=== PATIENT | male | born 1965 | race Caucasian/White ===

== ENCOUNTER 2017-09-11 21:29 | Emergency (ER) | payer OTHER ==
[~2017-09-11] VITALS: Ht 175.3 cm; Wt 87.1 kg
[2017-09-11 21:31] VITALS: TEMP 36.7; Ht 175.3 cm; Wt 87.1 kg
[2017-09-11] MEDS ORDERED: METOCLOPRAMIDE HCL INJ 5 MG/ML 2 ML VIAL IV STA (21:45)
[2017-09-11] MEDS ORDERED: DiphenhydrAMINE HCL 50 MG/ML VIAL IV STA (21:45)
[2017-09-11] MEDS ORDERED: KETOROLAC TROMETHAMINE 30 MG/ML VIAL IV STA (21:45)
[2017-09-11] MEDS ORDERED: [UNRECOGNIZED DRUG - CODE] IM (22:08)
[2017-09-11] MEDS ORDERED: AMLO-110 PO (22:08)
[2017-09-11] MEDS ORDERED: TRDI30X IM (22:08)
[2017-09-11] MEDS ORDERED: ASPCH81X PO (22:08)
[2017-09-11] MEDS ORDERED: PRLSR20 PO (22:08)
[2017-09-11] MEDS ORDERED: TAMS0.4C38 PO (22:08)
[2017-09-11] MEDS ORDERED: HYDR50CA2 PO (22:08)
[2017-09-11 22:14] LABS: BASO % 0.2 %; BASO ABS # 0.02 K/uL (0-0.2); EOS % 0.2 %; EOS ABS # 0.03 K/uL (0-0.5); HEMATOCRIT 44.6 % (42-52); HEMOGLOBIN 16.3 g/dL (14.0-18.0); IG# 0.03 K/uL (0.00-0.02); LYMPH % 18.7 %; LYMPH ABS # 2.46 K/uL (1.2-3.4); MEAN CELL VOLUME 83.8 fL (80-100); MEAN CORPUSCULAR HEMOGLOBIN 30.6 pg (25-34); MEAN CORPUSCULAR HGB CONC 36.5 g/dl (32-36); MEAN PLATELET VOLUME 10.5 fL (7.4-10.4); MONO % 10.1 %; MONO ABS # 1.32 K/uL (0.11-0.59); NEUT % 70.6 %; NEUT ABS # 9.27 K/uL (1.4-6.5); PLATELET COUNT 228 K/uL (130-400); RED CELL DISTRIBUTION WIDTH CV 12.7 % (11.5-14.5); RED CELL DISTRIBUTION WIDTH SD 38.5 fL (36.4-46.3); WHITE BLOOD COUNT 13.13 K/uL (4.8-10.8)
[2017-09-11 22:34] LABS: ALBUMIN 4.4 gm/dl (3.4-5.0); CALCIUM 9.1 mg/dl (8.5-10.1); CREATININE 1.04 mg/dl (0.60-1.40); POTASSIUM 3.6 mmol/L (3.5-5.1)
[2017-09-11 22:37] LABS: TOTAL PROTEIN 7.9 gm/dl (6.4-8.2)
[2017-09-11] MEDS ORDERED: OPTIRAY 320 IV PRN (23:15)
[2017-09-11] MEDS ORDERED: MoRPHine SULFATE 4 MG/ML 1 ML CARP\\VIAL IV STA (23:21)
[2017-09-11 23:57] VITALS: O2SAT 95
--- NOTE | 2017-09-12 00:33 | EMERGENCY ROOM VISIT NOTE ---
History First contact with patient: 21:34 Chief Complaint: ABDOMINAL PAIN Stated Complaint: ABD PAIN Nursing Triage Summary: Abdominal pain since 8pm last night with dry heaves. History of Present Illness The patient is a 51 year old male who presents to the Emergency Room with complaints of left lower quadrant abdominal pain for the past day that is steadily getting worse it radiates to his groin. Pain 8 out of 10. Nothing makes it better or worse. He has had nausea and vomiting. He saw the doctor at the present who gave him Toradol and Phenergan with no improvement of symptoms. No colonoscopy in the past. He is unsure if he has had a kidney stone. No injury to the area. Patient denies chest pain, dyspnea, fever, chills, cough, congestion, urinary symptoms, diarrhea. Review of Systems An 10 system review of systems was completed with positives and pertinent negatives listed in the HPI. 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) Current/Historical Medications Scheduled Amlodipine (Norvasc), 5 MG PO DAILY Aspirin (Aspirin Chewable), 81 MG PO DAILY Hydroxyzine Pamoate (Vistaril), 100 MG PO HS Omeprazole (Prilosec), 20 MG PO DAILY Tamsulosin Hcl (Flomax), 0.4 MG PO DAILY Scheduled PRN Ketorolac Tromethamine (Ketorolac Tromethamine), 60 MG IM TID PRN for Pain Promethazine Hcl (Phenergan), 50 MG IM TID PRN for Nausea Physical Exam Vital Signs Date Time Temp Pulse Resp B/P (MAP) Pulse Ox O2 Delivery O2 Flow Rate FiO2 09/12/17 00:01 67 09/11/17 23:57 95 Room Air 09/11/17 23:25 66 18 178/95 95 Room Air 09/11/17 21:31 36.7 82 18 155/97 96 Room Air Physical Exam VITALS: Vitals are noted on the nurse's note and reviewed by myself. Vital signs stable. GENERAL: White male in [facility], in no acute distress, nondiaphoretic, well- developed well-nourished. SKIN: The skin was without rashes, erythema, edema, or bruising. There is no tenting of the skin. Capillary reflex less than 2 seconds. HEAD: Normocephalic atraumatic. EARS: External auditory canals clear, tympanic membranes pearly bender without erythema or effusion bilaterally. EYES: Pupils equal round and reactive to light and accommodation. Conjunctivae without injection, sclerae without icterus. Extraocular movements intact. NOSE: Patent, turbinates without inflammation or discharge. MOUTH: Mucous membranes moist. . Pharynx without erythema or exudate. Uvula midline. Airway patent. Tongue does not deviate. NECK: Supple without nuchal rigidity. No lymphadenopathy. No thyromegaly. Cervical spine is nontender. No JVD. HEART: Regular rate and rhythm without murmurs gallops or rubs. LUNGS: Clear to auscultation bilaterally without wheezes, rales or rhonchi. No dullness to percussion. No retractions or accessory muscle use. ABDOMEN: Positive bowel sounds x 4. Normal tympanic percussion. Soft, tender to palpation left lower quadrant, no CVA tenderness, without masses or organomegaly. Eldridge sign negative. No guarding or rebound tenderness. MUSCULOSKELETAL: No muscle atrophy, erythema, or edema noted. NEURO: Patient was alert and oriented to person place and time. Normal sensation to light and sharp touch. No focal neurological deficits. Medical Decision & Procedures Laboratory Results 09/11/17 22:02 Red Blood Count 5.32, Mean Corpuscular Volume 83.8, Mean Corpuscular Hemoglobin 30.6, Mean Corpuscular Hemoglobin Concent 36.5, Mean Platelet Volume 10.5, Neutrophils (%) (Auto) 70.6, Lymphocytes (%) (Auto) 18.7, Monocytes (%) (Auto) 10.1, Eosinophils (%) (Auto) 0.2, Basophils (%) (Auto) 0.2, Neutrophils # (Auto ) 9.27, Lymphocytes # (Auto) 2.46, Monocytes # (Auto) 1.32, Eosinophils # (Auto ) 0.03, Basophils # (Auto) 0.02 09/11/17 22:02 Test 09/11/17 21:52 09/11/17 22:02 09/11/17 23:39 Urine Color YELLOW Urine Appearance CLEAR (CLEAR) Urine pH 6.5 (4.5-7.5) Urine Specific [place] 1.007 (1.000-1.030) Urine Protein NEG (NEG) Urine Glucose (UA) NEG (NEG) Urine Ketones NEG (NEG) Urine Occult Blood NEG (NEG) Urine Nitrite NEG (NEG) Urine Bilirubin NEG (NEG) Urine Urobilinogen NEG (NEG) Urine Leukocyte Esterase NEG (NEG) White Blood Count 13.13 K/uL (4.8-10.8) Red Blood Count 5.32 M/uL (4.7-6.1) Hemoglobin 16.3 g/dL (14.0-18.0) Hematocrit 44.6 % (42-52) Mean Corpuscular Volume 83.8 fL (80-100) Mean Corpuscular Hemoglobin 30.6 pg (25-34) Mean Corpuscular Hemoglobin Concent 36.5 g/dl (32-36) Platelet Count 228 K/uL (130-400) Mean Platelet Volume 10.5 fL (7.4-10.4) Neutrophils (%) (Auto) 70.6 % Lymphocytes (%) (Auto) 18.7 % Monocytes (%) (Auto) 10.1 % Eosinophils (%) (Auto) 0.2 % Basophils (%) (Auto) 0.2 % Neutrophils # (Auto) 9.27 K/uL (1.4-6.5) Lymphocytes # (Auto) 2.46 K/uL (1.2-3.4) Monocytes # (Auto) 1.32 K/uL (0.11-0.59) Eosinophils # (Auto) 0.03 K/uL (0-0.5) Basophils # (Auto) 0.02 K/uL (0-0.2) RDW Standard Deviation 38.5 fL (36.4-46.3) RDW Coefficient of Variation 12.7 % (11.5-14.5) Immature Granulocyte % (Auto) 0.2 % Immature Granulocyte # (Auto) 0.03 K/uL (0.00-0.02) Anion Gap 9.0 mmol/L (3-11) Est Creatinine Clear Calc Drug Dose 92.9 ml/min Estimated GFR () 96.6 Estimated GFR (Non- 83.3 BUN/Creatinine Ratio 8.4 (10-20) Calcium Level 9.1 mg/dl (8.5-10.1) Total Bilirubin 1.1 mg/dl (0.2-1) Direct Bilirubin 0.2 mg/dl (0-0.2) Aspartate Amino Transf (AST/SGOT) 52 U/L (15-37) Alanine Aminotransferase (ALT/SGPT) 47 U/L (12-78) Alkaline Phosphatase 67 U/L (45-117) Total Protein 7.9 gm/dl (6.4-8.2) Albumin 4.4 gm/dl (3.4-5.0) Bedside Lactic Acid Venous 0.82 mmol/L (0.90-1.70) Medications Administered Medications (Trade) Dose Ordered Sig/Chantal Route Start Time Stop Time Status Last Admin Dose Admin Ketorolac Tromethamine (Toradol Inj) 30 mg NOW STAT IV 09/11/17 21:45 09/11/17 21:47 DC 09/11/17 22:06 30 MG Metoclopramide HCl (Reglan Inj) 10 mg NOW STAT IV 09/11/17 21:45 09/11/17 21:47 DC 09/11/17 22:05 10 MG Diphenhydramine HCl (Benadryl Inj) 12.5 mg NOW STAT IV 09/11/17 21:45 09/11/17 21:47 DC 09/11/17 22:05 12.5 MG Morphine Sulfate (MoRPHine SULFATE INJ) 4 mg NOW STAT IV 09/11/17 23:21 09/11/17 23:22 DC 09/11/17 23:29 4 MG ED Course Prior records/ancillary studies reviewed. Triage Nursing notes reviewed. Additional history obtained from correction officers. The patient's history was concerning for abdominal pain. Differential diagnosis: Etiologies such as appendicitis, diverticulitis, PUD, biliary pathology, UTI, pancreatitis, obstruction, mesenteric ischemia, aortic pathology, infections, inflammatory bowel disease, renal colic, as well as others were entertained. Physical examination findings: As above. ER treatment provided: Toradol, Benadryl, Reglan On reassessment the patient felt better. Diagnostics interpreted by me: The labs revealed leukocytosis. No worrisome electrolyte abnormality. Negative urine Imaging studies: CT ABDOMEN & PELVIS With Contrast: Left sided Bochdalek hernia with herniation of the mesenteric fat in the left lower thorax. There is some fatty stranding in this area which may represent incarceration of fat. Left mild pleural effusion. Mild hiatal hernia. No hydronephrosis or nephrolithiasis. No bowel obstruction or bowel thickening. Radiologist: Dru Saavedra MD Study ready at 23:12 and initial results transmitted at 23:16 Critical Value Communications Consultation: A consultation was placed with the GS, Dr Quiroz. The case was discussed and diagnostics were reviewed. He states there is nothing to do with this and recommends discharge with outpatient follow-up. Exam and history seem consistent with Bochdalek hernia with herniation of the mesenteric fat in the left lower thorax and possible incarceration of fat. Surgery states there is nothing to do with this and recommend outpatient follow- up. Patient had a negative lactic acid. He is well-appearing. He did not have acute abdomen on exam. Patient was neurovascularly and neurologically intact. He was afebrile and nontoxic. No signs of UTI. He was advised to follow-up present doctor tomorrow here in the ER sooner for severe pain, fevers , vomiting, worsening signs or symptoms or as needed. By the evaluation outlined above emergent etiologies such as appendicitis, diverticulitis, PUD, biliary pathology, UTI, pancreatitis, obstruction, mesenteric ischemia, aortic pathology, infections, inflammatory bowel disease, renal colic, as well as others were deemed relatively unlikely. The pt informed about the findings as listed above. All questions were answered and pleased with the treatment. Return instructions were outlined and the patient was discharged in stable condition. Referral: The patient was referred back to their primary care physician for follow-up in 2 to 3 days for a recheck of the current condition. Case reviewed with my attending Medical Decision As above Medication Reconcilliation Current Medication List: was personally reviewed by me Blood Pressure Screening Patient's blood pressure: Elevated blood pressure Blood pressure disposition: Elevated BP felt to be situational Impression Primary Impression: Abdominal pain Additional Impression: Incarcerated fat Departure Information Referrals Marcelino TONY (PCP) Patient Instructions My [facility] Problem Qualifiers Primary Impression: Abdominal pain Abdominal location: left upper quadrant Qualified Codes: R10.12 - Left upper quadrant pain
[2017-09-12 00:38] VITALS: BP 168/87; PULSE 66; O2SAT 96
--- NOTE | 2017-09-12 07:25 | DIAGNOSTIC IMAGING REPORT ---
CT OF THE ABDOMEN AND PELVIS WITH CONTRAST CLINICAL HISTORY: Left lower quadrant abdominal pain. COMPARISON STUDY: None. TECHNIQUE: Following IV administration of 116 mL of Optiray-320, axial images of the abdomen and pelvis were obtained from the lung bases to the proximal femurs. Images were reviewed in the axial, sagittal, and coronal planes. IV contrast was administered without complication. A dose lowering technique was utilized adhering to the principles of ALARA. CT DOSE: 379.48 mGy.cm FINDINGS: Visualized portions of the lower chest demonstrate a trace left pleural effusion. In addition, there is a small defect within the left hemidiaphragm. A short segment of the splenic flexure of the colon protrudes through this defect. There is mild wall thickening of this portion of the colon with mild adjacent infiltration of the mesenteric fat. In addition, a moderate amount of fat protrudes through the defect. The liver, adrenal glands and pancreas are unremarkable. The size of the spleen is normal. There is a small subcapsular hypodense perisplenic fluid collection. A 1.2 cm lesion arising from the midpole of the left kidney measures just above water attenuation. This could be artifactual. There is no hydronephrosis. There is moderate atherosclerotic plaque of the abdominal aorta. There is no evidence for a small bowel obstruction. No lymphadenopathy is present. There are no suspicious skeletal lesions. IMPRESSION: 1. Small defect within the left hemidiaphragm which may be congenital or posttraumatic and is age indeterminate. This hernia has a narrow neck and a short segment of the splenic flexure protrudes through the hernia into the left lower hemithorax. Mild wall thickening of this portion of the colon with minimal adjacent infiltration and a trace left pleural effusion. This may reflect a closed loop type obstruction and colonic ischemia cannot be excluded on this exam. Surgical consultation is recommended. Findings discussed with Dr. Bee at time of dictation. 2. 1.2 cm hypodense left renal lesion. This likely reflects a cyst however measures just above water attenuation. A follow-up nonemergent renal ultrasound is recommended. 3. Tiny hypodense splenic subcapsular fluid collection which may reflect an old subcapsular hematoma. In addition, multiple old left-sided rib fractures. 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 Electronically signed by: Tim Fitzgerald M.D. 09/12/2017 7:24 AM Dictated Date/Time: 09/12/2017 7:04 AM
== END 2017-09-12 00:38 | disposition home or self-care (01) ==
LOC: C.EDB 21:31
DX: R10.12 Left upper quadrant pain (principal); I10 Essential (primary) hypertension; B19.20 Unspecified viral hepatitis C without hepatic coma; K21.9 Gastro-esophageal reflux disease without esophagitis; M54.9 Dorsalgia, unspecified; F17.210 Nicotine dependence, cigarettes, uncomplicated; Z79.82 Long term (current) use of aspirin; Z79.899 Other long term (current) drug therapy

== ENCOUNTER 2017-09-12 09:34 | Inpatient (IN) | payer OTHER ==
[~2017-09-12] VITALS: Ht 175.3 cm; Wt 86.2 kg
[~2017-09-12 09:34] MED LIST: AMLO-110 PO; ASPCH81X PO; HYDR50CA2 PO; PRLSR20 PO; TAMS0.4C38 PO; TRDI30X IM; [UNRECOGNIZED DRUG - CODE] IM
[2017-09-12] MEDS ORDERED: SODIUM CHLORIDE 0.9% 1000ML 500 ML IV STA (09:58)
[2017-09-12] MEDS ORDERED: ONDANSETRON INJ 2 MG/ML 2 ML VIAL IV STA (09:58)
[2017-09-12] MEDS ORDERED: MoRPHine SULFATE 4 MG/ML 1 ML CARP\\VIAL IV PRN (10:00)
[2017-09-12 10:26] LABS: BASO % 0.2 %; BASO ABS # 0.02 K/uL (0-0.2); EOS % 0.2 %; EOS ABS # 0.02 K/uL (0-0.5); HEMATOCRIT 44.8 % (42-52); HEMOGLOBIN 16.1 g/dL (14.0-18.0); IG# 0.02 K/uL (0.00-0.02); LYMPH % 12.7 %; LYMPH ABS # 1.62 K/uL (1.2-3.4); MEAN CELL VOLUME 85.2 fL (80-100); MEAN CORPUSCULAR HEMOGLOBIN 30.6 pg (25-34); MEAN CORPUSCULAR HGB CONC 35.9 g/dl (32-36); MEAN PLATELET VOLUME 10.8 fL (7.4-10.4); MONO % 8.3 %; MONO ABS # 1.06 K/uL (0.11-0.59); NEUT % 78.4 %; NEUT ABS # 10.01 K/uL (1.4-6.5); PLATELET COUNT 215 K/uL (130-400); RED CELL DISTRIBUTION WIDTH CV 12.8 % (11.5-14.5); RED CELL DISTRIBUTION WIDTH SD 39.9 fL (36.4-46.3); WHITE BLOOD COUNT 12.75 K/uL (4.8-10.8)
[2017-09-12 10:41] LABS: ALBUMIN 4.3 gm/dl (3.4-5.0); CALCIUM 9.1 mg/dl (8.5-10.1); CREATININE 1.04 mg/dl (0.60-1.40); POTASSIUM 3.8 mmol/L (3.5-5.1)
[2017-09-12 10:43] LABS: TOTAL PROTEIN 7.6 gm/dl (6.4-8.2)
[2017-09-12 11:15] VITALS: O2SAT 95; Ht 175.3 cm; Wt 86.2 kg
[2017-09-12] MEDS ORDERED: ONDANSETRON INJ 2 MG/ML 2 ML VIAL IV PRN (11:30)
[2017-09-12] MEDS ORDERED: PIPERACILL/TAZOBAC CONSULT ACTIVE PRN (11:30)
[2017-09-12] MEDS ORDERED: ACETAMINOPHEN 325 MG TAB PO PRN (11:30)
--- NOTE | 2017-09-12 11:35 | Medical Consult ---
Consultation Note Date of Service Sep 12, 2017. Consultation Note H & P Dictated #[id number]
[2017-09-12 11:56] LABS: PTT PATIENT 25.4 SECONDS (21.0-31.0)
[2017-09-12] MEDS: MoRPHine SULFATE 2 MG/ML CARP IV PRN ×3 (13:15→19:19)
[2017-09-12] MEDS: SODIUM CHLORIDE 0.9% 1000ML 1,000 ML IV SCH (13:41)
[2017-09-12] MEDS ORDERED: TAMSULOSIN HCL 0.4 MG CAP PO ONE (14:15)
--- NOTE | 2017-09-12 14:16 | HISTORY & PHYSICAL EXAMINATION ---
DATE OF ADMISSION: 09/12/2017 REASON FOR ADMISSION: Recurrent left diaphragmatic hernia. HISTORY OF PRESENT ILLNESS: This is a 51-year-old inmate who has lower abdominal pain and underwent a workup and was found to have a recurrent left diaphragmatic hernia. The patient suffered fractured ribs several years ago and apparently developed a diaphragmatic rupture. This was repaired several years ago at via thoracotomy. The patient presents back now and has had chronic pain in his abdomen, but which is not associated with bowel movements. He underwent a CT scan which showed a recurrent hernia with colon in his left chest. I had a long talk with the patient and informed him I was concerned about this, although he did not appear to be obstructed. We admitted him and we are going to take him for a Robot-assisted laparoscopic repair of this diaphragmatic hernia tomorrow on 09/13/2017. We had a long discussion about risks, benefits and about expected outcomes. I have explained to him that his abdominal pain may not be affected by this. The patient has had bilateral inguinal hernia repairs and he feels that there has been a recurrence, although he certainly has no evidence of any obstruction or incarceration. The abdomen is soft. He has good bowel sounds. He is not tender. We will get the diaphragmatic hernia repaired tomorrow. MAXIMO
[2017-09-12] MEDS ORDERED: PIPERACILL/TAZOBAC IV 3.375 GM in DEXTROSE 5% 100ML 100 ML IV SCH (14:30)
[2017-09-12] MEDS: KETOROLAC TROMETHAMINE 15 MG/ML VIAL IV PRN ×2 (14:41→21:58)
--- NOTE | 2017-09-12 15:23 | EMERGENCY ROOM VISIT NOTE ---
History Report prepared by Josue: Cortes Gutierrez Under the Supervision of: Dr. Gurvinder Vaughn M.D. First contact with patient: 09:51 Chief Complaint: ABDOMINAL PAIN Stated Complaint: ER CALLED AND TOLD THEM TO COME BACK Nursing Triage Summary: Pt states diffuse abd pain that started Sat at 2030, nausea. No BM since Sat. Pt was here during the night, was called and told to return. Pt states, "I don't know why they wanted me to come back. I hope to get rid of my pain." CT report states: possible closed loop type obstruction and colonic ischemia. History of Present Illness The patient is a 51 year old male who presents to the Emergency Room with complaints of constant abdominal pain for three days. He states it initially began with a cramp at 2030 three days ago. He reports the pain has radiated throughout the whole abdomen. He currently rates his pain a 10/10 in severity. He has been dry heaving. He does not believe anything makes it better. He denies any fevers or cough. He has a history of diaphragmatic hernia with a history of surgical repair. He has a history of inguinal hernias. He reports a mild loss of appetite. He states that last time he went to the bathroom (BM) was two days ago. He denies any shortness of breath, though he feels like the pain is making it more difficult to breath. He was seen in the ED last night for similar symptoms, though he was sent home. The radiologist over read the scans this morning and determined the patient may have an incarcerated hernia. Source of History: patient Onset: three days ago Position: abdomen Symptom Intensity: 10/10 Timing: constant Associated Symptoms: No fevers, No cough, No SOB, No vomiting Note: He reports dry heaving. He reports mild loss of appetite. Review of Systems See HPI for pertinent positives & negatives. A total of 10 systems reviewed and were otherwise negative. Past Medical & Surgical Medical Problems: (1) Diaphragmatic hernia (2) Inguinal hernia Family History No pertinent family history Social History Smoking Status: Current Every Day Smoker Marital Status: single Housing Status: other Occupation Status: other Current/Historical Medications Scheduled Amlodipine (Norvasc), 5 MG PO DAILY Aspirin (Aspirin Chewable), 81 MG PO DAILY Hydroxyzine Pamoate (Vistaril), 100 MG PO HS Omeprazole (Prilosec), 20 MG PO DAILY Tamsulosin Hcl (Flomax), 0.4 MG PO DAILY Scheduled PRN Ketorolac Tromethamine (Ketorolac Tromethamine), 60 MG IM TID PRN for Pain Promethazine Hcl (Phenergan), 50 MG IM TID PRN for Nausea Allergies Coded Allergies: No Known Allergies (Unverified , 09/12/17) Physical Exam Vital Signs Date Time Temp Pulse Resp B/P (MAP) Pulse Ox O2 Delivery O2 Flow Rate FiO2 09/12/17 11:15 95 Room Air 09/12/17 10:43 70 09/12/17 10:41 67 14 165/90 95 Room Air 09/12/17 09:42 36.8 75 18 175/95 95 Room Air Physical Exam GENERAL: Patient is in no acute distress. HEENT: No acute trauma, normocephalic atraumatic, mucous membranes moist, no nasal congestion, no scleral icterus. NECK: No stridor, no adenopathy, no meningismus, trachea is midline. LUNGS: Clear to auscultation bilaterally, no wheeze, no rhonchi, breath sounds equal. HEART: Without murmurs gallops or rubs, regular rate and rhythm. ABDOMEN: Soft, mild diffuse tenderness, bowel sounds positive, no hernias, no peritonitis. EXTREMITIES: No cyanosis or edema, full range of motion of all the joints without pain or difficulty, no signs for acute trauma. NEUROLOGIC: Oriented x 3, no acute motor or sensory deficits, no focal weakness. SKIN: No rash, no jaundice, no diaphoresis. Medical Decision & Procedures Laboratory Results 09/12/17 10:17 Red Blood Count 5.26, Mean Corpuscular Volume 85.2, Mean Corpuscular Hemoglobin 30.6, Mean Corpuscular Hemoglobin Concent 35.9, Mean Platelet Volume 10.8, Neutrophils (%) (Auto) 78.4, Lymphocytes (%) (Auto) 12.7, Monocytes (%) (Auto) 8.3, Eosinophils (%) (Auto) 0.2, Basophils (%) (Auto) 0.2, Neutrophils # (Auto) 10.01, Lymphocytes # (Auto) 1.62, Monocytes # (Auto) 1.06, Eosinophils # (Auto) 0.02, Basophils # (Auto) 0.02 09/12/17 10:17 Test 09/12/17 10:17 09/12/17 11:02 White Blood Count 12.75 K/uL (4.8-10.8) Red Blood Count 5.26 M/uL (4.7-6.1) Hemoglobin 16.1 g/dL (14.0-18.0) Hematocrit 44.8 % (42-52) Mean Corpuscular Volume 85.2 fL (80-100) Mean Corpuscular Hemoglobin 30.6 pg (25-34) Mean Corpuscular Hemoglobin Concent 35.9 g/dl (32-36) Platelet Count 215 K/uL (130-400) Mean Platelet Volume 10.8 fL (7.4-10.4) Neutrophils (%) (Auto) 78.4 % Lymphocytes (%) (Auto) 12.7 % Monocytes (%) (Auto) 8.3 % Eosinophils (%) (Auto) 0.2 % Basophils (%) (Auto) 0.2 % Neutrophils # (Auto) 10.01 K/uL (1.4-6.5) Lymphocytes # (Auto) 1.62 K/uL (1.2-3.4) Monocytes # (Auto) 1.06 K/uL (0.11-0.59) Eosinophils # (Auto) 0.02 K/uL (0-0.5) Basophils # (Auto) 0.02 K/uL (0-0.2) RDW Standard Deviation 39.9 fL (36.4-46.3) RDW Coefficient of Variation 12.8 % (11.5-14.5) Immature Granulocyte % (Auto) 0.2 % Immature Granulocyte # (Auto) 0.02 K/uL (0.00-0.02) Anion Gap 10.0 mmol/L (3-11) Est Creatinine Clear Calc Drug Dose 92.5 ml/min Estimated GFR () 96.6 Estimated GFR (Non- 83.3 BUN/Creatinine Ratio 10.4 (10-20) Calcium Level 9.1 mg/dl (8.5-10.1) Total Bilirubin 1.2 mg/dl (0.2-1) Aspartate Amino Transf (AST/SGOT) 47 U/L (15-37) Alanine Aminotransferase (ALT/SGPT) 44 U/L (12-78) Alkaline Phosphatase 65 U/L (45-117) Total Protein 7.6 gm/dl (6.4-8.2) Albumin 4.3 gm/dl (3.4-5.0) Globulin 3.3 gm/dl (2.5-4.0) Albumin/Globulin Ratio 1.3 (0.9-2) Lipase 172 U/L (73-393) Lactic Acid Level 0.8 mmol/L (0.4-2.0) Laboratory results reviewed by me. Medications Administered Medications (Trade) Dose Ordered Sig/Chantal Route Start Time Stop Time Status Last Admin Dose Admin Sodium Chloride 500 ml @ 999 mls/hr Q31M STAT IV 09/12/17 09:58 09/12/17 10:28 DC 09/12/17 10:39 999 MLS/HR Ondansetron HCl (Zofran Inj) 4 mg NOW STAT IV 09/12/17 09:58 09/12/17 10:02 DC 09/12/17 10:39 4 MG Morphine Sulfate (MoRPHine SULFATE INJ) 4 mg Q30M PRN IV 09/12/17 10:00 09/12/17 13:15 DC 09/12/17 10:39 4 MG ED Course 0958: The patient was evaluated in room A10. A complete history and physical exam was performed. 0958: Ordered Zofran 4 mg IV and Sodium Chloride 500 ml @ 999 mls/hr IV 1000: Ordered Morphine Sulfate 4 mg IV 1026: I spoke with Dr. Robertson, [facility] cardiothoracic surgeon. We discussed the patient's case. The patient will be further evaluated. Medical Decision The patient is a 51 year old male who presents to the ED with complaints of abdominal pain. Differential diagnoses considered include bowl obstruction, diverticulitis, appendicitis, pancreatitis, hernia, incarcerated hernia, and musculoskeletal pain. There is a mild leukocytosis, this could be consistent with infection or possibly his pain. No anemia. No significant electrolyte abnormality or kidney failure. There were a few scattered mild liver enzyme elevations. No pancreatitis. The patient was not toxic or febrile. CT of the abdomen and pelvis from earlier suggests a possible incarcerated diaphragmatic hernia. The patient received IV saline, IV morphine and IV Zofran. I spoke to general surgery and then to cardiothoracic surgery. Dr. Robertson of cardiothoracic surgery has accepted the patient. The findings on CT will be addressed by cardiothoracic surgery. Medication Reconcilliation Current Medication List: was personally reviewed by me Blood Pressure Screening Patient's blood pressure: Elevated blood pressure Blood pressure disposition: Elevated BP felt to be situational Consults Time Called: 1002 Consulting Physician: SHOSHANA Hidalgo cardiothoracic surgeon Returned Call: 1026 I spoke with SHOSHANA Hidalgo cardiothoracic surgeon. We discussed the patient 's case. The patient will be further evaluated. Impression Primary Impression: Diaphragmatic hernia Additional Impression: Diffuse abdominal pain Scribe Attestation The scribe's documentation has been prepared under my direction and personally reviewed by me in its entirety. I confirm that the note above accurately reflects all work, treatment, procedures, and medical decision making performed by me. Departure Information Dispostion Being Evaluated By Hospitalist Referrals Marcelino TONY (PCP) Patient Instructions My [facility] Problem Qualifiers
--- NOTE | 2017-09-12 15:24 | DIAGNOSTIC IMAGING REPORT ---
CHEST 2 VIEWS ROUTINE CLINICAL HISTORY: Preoperative chest COMPARISON STUDY: No previous studies for comparison. FINDINGS: The cardiac and mediastinal contours are normal. There is no evidence of focal pulmonary consolidation. There is no evidence of failure. No pleural effusions are visualized.[ There are old left-sided rib fractures. There is gaseous prominence of the visualized portions of the bowel. IMPRESSION: No active disease in the chest. Electronically signed by: Angel Rodriguez M.D. 09/12/2017 3:23 PM Dictated Date/Time: 09/12/2017 3:23 PM
[2017-09-12 15:34] VITALS: O2SAT 96
[2017-09-12 15:52] VITALS: BP 148/79; PULSE 68; TEMP 36.9; O2SAT 95
[2017-09-12] MEDS: PIPERACILL/TAZOBAC IV 3.375 GM in DEXTROSE 5% 100ML 100 ML IV SCH (20:22)
[2017-09-12] MEDS: hydrOXYzine HCL 25 MG TAB PO SCH (21:43)
[2017-09-12 22:26] VITALS: BP 165/81; PULSE 71; TEMP 36.8; O2SAT 92
[2017-09-12] MEDS ORDERED: NURSING VERBAL MED ORDER ONE (22:30)
[2017-09-13] VITALS (10 sets, daily range): BP systolic 116–145; BP diastolic 65–85; PULSE 68–89; TEMP 36.6–37.3; O2SAT 92–96
[2017-09-13] MEDS: SODIUM CHLORIDE 0.9% 1000ML 1,000 ML IV SCH (00:47)
[2017-09-13] MEDS: MoRPHine SULFATE 2 MG/ML CARP IV PRN ×5 (00:56→21:49)
[2017-09-13] MEDS: PIPERACILL/TAZOBAC IV 3.375 GM in DEXTROSE 5% 100ML 100 ML IV SCH ×3 (03:51→23:45)
[2017-09-13 06:19] LABS: BASO % 0.2 %; BASO ABS # 0.02 K/uL (0-0.2); EOS % 0.2 %; EOS ABS # 0.02 K/uL (0-0.5); HEMATOCRIT 43.1 % (42-52); HEMOGLOBIN 15.7 g/dL (14.0-18.0); IG# 0.02 K/uL (0.00-0.02); LYMPH % 13.4 %; LYMPH ABS # 1.76 K/uL (1.2-3.4); MEAN CORPUSCULAR HEMOGLOBIN 31.3 pg (25-34); MEAN CORPUSCULAR HGB CONC 36.4 g/dl (32-36); MEAN PLATELET VOLUME 11.1 fL (7.4-10.4); MONO % 11.2 %; MONO ABS # 1.47 K/uL (0.11-0.59); NEUT % 74.8 %; NEUT ABS # 9.82 K/uL (1.4-6.5); PLATELET COUNT 194 K/uL (130-400); RED CELL DISTRIBUTION WIDTH SD 41.2 fL (36.4-46.3); WHITE BLOOD COUNT 13.11 K/uL (4.8-10.8)
--- NOTE | 2017-09-13 06:50 | History & Physical Bridge Note ---
H&P Re-Evaluation Bridge Note: I have examined the patient, reviewed the History & Physical and in the interval since the performance of the History & Physical I have noted the following changes of clinical significance: No changes noted
[2017-09-13 06:55] LABS: CALCIUM 8.2 mg/dl (8.5-10.1); CREATININE 0.99 mg/dl (0.60-1.40); POTASSIUM 3.8 mmol/L (3.5-5.1)
[2017-09-13] MEDS ORDERED: GLYCOPYRROLATE INJ 0.2 MG/ML VIAL ONE ×2 (07:06→12:03)
[2017-09-13] MEDS ORDERED: MIDAZOLAM HCL 1 MG/ML 2ML VIAL ONE (07:06)
[2017-09-13] MEDS ORDERED: NEOSTIGMINE METHYLSULFATE 5 MG/5 ML SYR ONE (07:06)
[2017-09-13] MEDS ORDERED: FENTANYL CITRATE INJ 50 MCG/1 ML 2 ML VIAL ONE (07:06)
[2017-09-13] MEDS ORDERED: ONDANSETRON INJ 2 MG/ML 2 ML VIAL ONE ×2 (07:06→12:03)
[2017-09-13] MEDS ORDERED: LIDOCAINE HCL 2% 2 ML VIAL (20MG/ML) ONE (07:06)
[2017-09-13] MEDS ORDERED: PROPOFOL IV EMULSION 10 MG/ML 20 ML VIAL IV ONE (07:06)
[2017-09-13] MEDS ORDERED: DEXAMETHASONE SOD INJ 4 MG/ML VIAL ONE (07:06)
[2017-09-13] MEDS ORDERED: SODIUM CHLORIDE 0.9% INJ 10 ML VIAL ONE ×3 (07:08→08:19)
[2017-09-13] MEDS ORDERED: HYDROmorphone INJ 2 MG/ML SYR/VIAL ONE (07:08)
[2017-09-13] MEDS ORDERED: BUPIVACAINE 0.5 % 5 MG/1 ML MPF 30ML VIAL ONE (07:39)
[2017-09-13] MEDS ORDERED: SODIUM CHLORIDE 0.9% PF 50 ML VIAL ONE (07:39)
[2017-09-13] MEDS ORDERED: BUPIVACAINE LIPOSOME 1/3% 266 MG/20 ML VIAL INFIL ONE (07:39)
[2017-09-13] MEDS ORDERED: PHENYLEPHRINE 100MCG/ML 5ML SYR ONE (08:19)
[2017-09-13] MEDS ORDERED: CEFAZOLIN SOD 1 GM VIAL ONE (08:19)
[2017-09-13] MEDS ORDERED: PHENYLEPHRINE HCL INJ 10 MG/ML VIAL ONE ×6 (08:19→11:15)
[2017-09-13] MEDS ORDERED: SUCCINYLCHOLINE 100MG/5ML SYR IV ONE (08:54)
[2017-09-13] MEDS: TAMSULOSIN HCL 0.4 MG CAP PO SCH (09:00)
[2017-09-13] MEDS ORDERED: AMLODIPINE BESYLATE 5 MG TAB PO SCH (09:00)
[2017-09-13] MEDS ORDERED: ATROPINE SULFATE 0.1 MG/ML 5ML SYR IV PRN (09:15)
[2017-09-13] MEDS ORDERED: HYDROmorphone INJ 1 MG/ML SYR IV PRN (09:15)
[2017-09-13] MEDS ORDERED: EpHEDrine SULFATE INJ 50 MG/ML AMP IV PRN (09:15)
[2017-09-13] MEDS ORDERED: PROMETHAZINE HCL INJ 12.5 MG in SODIUM CHLORIDE 0.9% 50ML 50 ML IV PRN (09:15)
[2017-09-13] MEDS ORDERED: ONDANSETRON INJ 2 MG/ML 2 ML VIAL IV PRN (09:15)
--- NOTE | 2017-09-13 09:18 | Progress Note ---
Progress Note Date of Service Sep 13, 2017. Progress Note consulted for urinary retention. Pt voided last evening, and still have a PVR of 900ml. Farmer placed by nursing staff. Attempted to see the pt this morning, but he was in surgery. Recommend leaving farmer catheter for now and continuing Flomax. Will plan to place consult tomorrow morning.
[2017-09-13] MEDS ORDERED: ALBUMIN HUMAN 5% 12.5 GM/250 ML VIAL IV ONE (12:04)
--- NOTE | 2017-09-13 12:11 | [facility] Post Operative Brief Note ---
Immediate Operative Summary Operative Date Sep 13, 2017. Pre-Operative Diagnosis Recurrent left diaphragmatic hernia Post-Operative Diagnosis 1. Recurrent left diaphragmatic hernia 2. Ischemic omentum Procedure(s) Performed Laparoscopic Robotic Assisted Diaphragmatic Hernia Repair with Mesh [place] Surgeon Dr. Jose Robertson Sludge Filtration Attendant Surgeon(s) Jorge Cain PA-C Estimated Blood Loss 10 cc Findings Consistent with Post-Op Diagnosis Specimens Permanent specimens A: Hernia contents, ischemic omentum Anesthesia Type General
--- NOTE | 2017-09-13 12:57 | DIAGNOSTIC IMAGING REPORT ---
CHEST ONE VIEW PORTABLE CLINICAL HISTORY: pleurex insertion COMPARISON STUDY: 09/12/2017 FINDINGS: The cardiac and mediastinal contours remain stable. There is been interval insertion of a left-sided Pleurx catheter which projects over the left lung base and gastric air bubble. There is no focal pulmonary consolidation. There is no failure. There are old left-sided rib fractures. There is a trace pneumoperitoneum.[ Tiny metallic coil-like densities are visualized within the left upper quadrant, likely secondary to a mesh hernia repair. IMPRESSION: 1. Interval insertion of a left-sided Pleurx catheter 2. Trace pneumoperitoneum, likely postsurgical Electronically signed by: Angel Rodriguez M.D. 09/13/2017 12:56 PM Dictated Date/Time: 09/13/2017 12:54 PM
[2017-09-13] MEDS: FENTANYL CITRATE INJ 50 MCG/1 ML 2 ML VIAL IV PRN ×2 (12:58→13:03)
--- NOTE | 2017-09-13 13:17 | Anesthesiology Progress Note ---
Anesthesia Post Op Note Date & Time Sep 13, 2017 at 13:16 Vital Signs Pain Intensity: 7 Vital Signs Past 12 Hours Date Time Temp Pulse Resp B/P (MAP) Pulse Ox O2 Delivery O2 Flow Rate FiO2 09/13/17 13:05 86 15 127/80 94 Nasal Cannula 3 09/13/17 12:55 84 15 127/74 97 Oxymask 8 09/13/17 12:45 88 14 134/76 95 Oxymask 8 09/13/17 12:39 36.5 100 16 126/88 97 Oxymask 8 09/13/17 06:29 36.9 75 20 145/85 (105) 96 Room Air Notes Mental Status: alert / awake / arousable, participated in evaluation Pt Amnestic to Procedure: Yes Nausea / Vomiting: adequately controlled Pain: adequately controlled Airway Patency, RR, SpO2: stable & adequate BP & HR: stable & adequate Hydration State: stable & adequate Anesthetic Complications: no major complications apparent
[2017-09-13] MEDS: ACETAMINOPHEN IV 1,000 MG in EMPTY BAG 0 ML IV SCH ×2 (14:18→21:15)
[2017-09-13] MEDS: METOCLOPRAMIDE HCL INJ 5 MG/ML 2 ML VIAL IV. SCH ×2 (14:49→21:15)
[2017-09-13] MEDS ORDERED: PIPERACILL/TAZOBAC IV 3.375 GM in DEXTROSE 5% 100ML 100 ML IV SCH (16:00)
[2017-09-13] MEDS: D5W AND 1/2NSS 1,000 ML IV SCH (16:01)
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
[2017-09-13] MEDS: KETOROLAC TROMETHAMINE 15 MG/ML VIAL IV PRN (18:08)
[2017-09-13] MEDS: hydrOXYzine HCL 25 MG TAB PO SCH (21:14)
[2017-09-14] MEDS: KETOROLAC TROMETHAMINE 15 MG/ML VIAL IV PRN ×3 (00:05→15:31)
[2017-09-14 02:32] VITALS: BP 144/71; PULSE 64; TEMP 36.6; O2SAT 93
[2017-09-14] MEDS: MoRPHine SULFATE 2 MG/ML CARP IV PRN ×5 (02:35→22:17)
[2017-09-14] MEDS ORDERED: NURSING DECISION MEDICATION ORDER SCH (05:00)
[2017-09-14] MEDS: METOCLOPRAMIDE HCL INJ 5 MG/ML 2 ML VIAL IV. SCH (05:37)
[2017-09-14] MEDS: ACETAMINOPHEN IV 1,000 MG in EMPTY BAG 0 ML IV SCH (05:37)
[2017-09-14] MEDS: D5W AND 1/2NSS 1,000 ML IV SCH (05:37)
[2017-09-14 06:37] LABS: BASO % 0.1 %; BASO ABS # 0.01 K/uL (0-0.2); EOS % 0.1 %; EOS ABS # 0.01 K/uL (0-0.5); HEMATOCRIT 37.9 % (42-52); HEMOGLOBIN 13.3 g/dL (14.0-18.0); IG# 0.04 K/uL (0.00-0.02); LYMPH % 12.9 %; LYMPH ABS # 1.92 K/uL (1.2-3.4); MEAN CELL VOLUME 86.7 fL (80-100); MEAN CORPUSCULAR HEMOGLOBIN 30.4 pg (25-34); MEAN CORPUSCULAR HGB CONC 35.1 g/dl (32-36); MEAN PLATELET VOLUME 10.9 fL (7.4-10.4); MONO % 13.6 %; MONO ABS # 2.03 K/uL (0.11-0.59); NEUT ABS # 10.88 K/uL (1.4-6.5); PLATELET COUNT 185 K/uL (130-400); RED CELL DISTRIBUTION WIDTH SD 41.8 fL (36.4-46.3); WHITE BLOOD COUNT 14.89 K/uL (4.8-10.8)
--- NOTE | 2017-09-14 06:56 | DIAGNOSTIC IMAGING REPORT ---
CHEST ONE VIEW PORTABLE CLINICAL HISTORY: pleurex tube position COMPARISON STUDY: 09/13/2017 FINDINGS: Stable to slightly improved exam in the prior study. Drainage catheter left lung base is unchanged in position. No significant pneumothorax. Lungs are grossly clear at this time. Subdiaphragmatic free air is not identified currently. IMPRESSION: Improved exam with no evidence for subdiaphragmatic free air on this projection. Lungs are clear. No evidence pneumothorax. Left basilar drainage catheter unchanged in position. The above report was generated using voice recognition software. It may contain grammatical, syntax or spelling errors. Electronically signed by: You Baker M.D. 09/14/2017 6:55 AM Dictated Date/Time: 09/14/2017 6:54 AM
[2017-09-14 07:08] VITALS: BP 154/78; PULSE 65; TEMP 36.6; O2SAT 93
[2017-09-14 07:11] LABS: CREATININE 1.06 mg/dl (0.60-1.40); POTASSIUM 3.8 mmol/L (3.5-5.1)
--- NOTE | 2017-09-14 08:07 | Anesthesiology Progress Note ---
Anesthesia Post Op Note Date & Time Sep 14, 2017 at 08:07 Vital Signs Pain Intensity: 7.0 Vital Signs Past 12 Hours Date Time Temp Pulse Resp B/P (MAP) Pulse Ox O2 Delivery O2 Flow Rate FiO2 09/14/17 07:08 36.6 65 18 154/78 (103) 93 Room Air 09/14/17 02:32 36.6 64 14 144/71 (95) 93 Room Air 09/13/17 23:15 Room Air 09/13/17 22:59 36.8 68 16 131/65 (87) 95 Room Air Notes Mental Status: alert / awake / arousable, participated in evaluation Pt Amnestic to Procedure: Yes Nausea / Vomiting: adequately controlled Pain: adequately controlled Airway Patency, RR, SpO2: stable & adequate BP & HR: stable & adequate Hydration State: stable & adequate Anesthetic Complications: no major complications apparent
[2017-09-14] MEDS: PIPERACILL/TAZOBAC IV 3.375 GM in DEXTROSE 5% 100ML 100 ML IV SCH (08:25)
[2017-09-14] MEDS: TAMSULOSIN HCL 0.4 MG CAP PO SCH (08:30)
[2017-09-14] MEDS: ENOXAPARIN 40 MG/0.4 ML SYR SQ SCH (08:32)
--- NOTE | 2017-09-14 09:51 | Urology Consultation ---
History General Date of Service: Sep 14, 2017. Chief Complaint: urinary retention Primary Care Physician: Marcelino TONY Pt seen a urologist before?: No History of Present Illness 51 yo male admitted for diaphragmatic hernia repair. consulted as the pt was noted to be in UR on admission with over 900ml in his bladder. Farmer catheter placed prior to surgery. Farmer noted to be draining clear, yellow urine this morning. The pt reports a hx of weak stream and nocturia 2x per night. He has been on Flomax for a while, which he feels has helped with his stream. He feels he was voiding well until developing difficulty on admission. He denies dysuria or hematuria prior to admission. Laboratory Last 24 Hours Test 09/13/17 11:49 09/14/17 06:02 Bedside Blood Gas pH (LAB) 7.21 Bedside Blood Gas pCO2 (LAB) 62 mmHg Bedside Blood Gas pO2 (LAB) 265 mmHg Bedside Blood Gas HCO3 (LAB) 25 meq/L Bedside Blood Gas Total CO2 26 mEq/l Bedside Blood Gas Base Excess (LAB) -3.0 meq/L Bedside Blood Gas O2 Saturation 100.0 % White Blood Count 14.89 K/uL Red Blood Count 4.37 M/uL Hemoglobin 13.3 g/dL Hematocrit 37.9 % Mean Corpuscular Volume 86.7 fL Mean Corpuscular Hemoglobin 30.4 pg Mean Corpuscular Hemoglobin Concent 35.1 g/dl Platelet Count 185 K/uL Mean Platelet Volume 10.9 fL Neutrophils (%) (Auto) 73.0 % Lymphocytes (%) (Auto) 12.9 % Monocytes (%) (Auto) 13.6 % Eosinophils (%) (Auto) 0.1 % Basophils (%) (Auto) 0.1 % Neutrophils # (Auto) 10.88 K/uL Lymphocytes # (Auto) 1.92 K/uL Monocytes # (Auto) 2.03 K/uL Eosinophils # (Auto) 0.01 K/uL Basophils # (Auto) 0.01 K/uL RDW Standard Deviation 41.8 fL RDW Coefficient of Variation 13.0 % Immature Granulocyte % (Auto) 0.3 % Immature Granulocyte # (Auto) 0.04 K/uL Sodium Level 136 mmol/L Potassium Level 3.8 mmol/L Chloride Level 104 mmol/L Carbon Dioxide Level 24 mmol/L Anion Gap 8.0 mmol/L Blood Urea Nitrogen 14 mg/dl Creatinine 1.06 mg/dl Est Creatinine Clear Calc Drug Dose 90.7 ml/min Estimated GFR () 94.4 Estimated GFR (Non- 81.4 BUN/Creatinine Ratio 13.3 Random Glucose 103 mg/dl Calcium Level 8.0 mg/dl Problem List Medical Problems: (1) Abdominal pain Status: Acute (2) Diffuse abdominal pain Status: Acute Past History other (diaphragmatic hernia, inguinal hernia ) Past Surgical History: other (hx of thoracotomy for diaphragmatic rupture repair, s/p robotic assisted laparoscopic repair of hemidiaphragm hernia) Family History No pertinent family history Social History Hx Tobacco Use In Past Year?: Yes Smoking: other (current everyday smoker) Alcohol: no current use Marital status: Housing status: other ([facility]) 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) Allergies Coded Allergies: No Known Allergies (Unverified , 09/12/17) Medications Home Medications: Home Meds and Scripts Medications Dose Route/Sig Max Daily Dose Days Date Category Phenergan (Promethazine Hcl) 50 Mg/Ml Inj 50 Mg IM TID PRN 09/11/17 Reported Ketorolac Tromethamine 30 Mg/Ml Inj 60 Mg IM TID PRN 09/11/17 Reported Flomax (Tamsulosin Hcl) 0.4 Mg Cap 0.4 Mg PO DAILY 09/11/17 Reported Prilosec (Omeprazole) 20 Mg Capcr 20 Mg PO DAILY 09/11/17 Reported Vistaril (Hydroxyzine Pamoate) 50 Mg Cap 100 Mg PO HS 09/11/17 Reported Aspirin Chewable (Aspirin) 81 Mg Chew 81 Mg PO DAILY 09/11/17 Reported Norvasc (Amlodipine Besylate) 5 Mg Tab 5 Mg PO DAILY 09/11/17 Reported Inpatient Medications: Current Inpatient Medications Medications (Trade) Dose Ordered Sig/Chantal Route Start Time Stop Time Status Last Admin Dose Admin Tamsulosin HCl (Flomax Cap) 0.4 mg DAILY PO 09/13/17 09:00 10/13/17 08:59 09/14/17 08:30 0.4 MG Hydroxyzine HCl (Vistaril Tab) 100 mg HS PO 09/12/17 21:00 10/12/17 20:59 09/13/17 21:14 100 MG Ondansetron HCl (Zofran Inj) 4 mg Q6H PRN IV 09/12/17 11:30 10/12/17 11:29 Morphine Sulfate (MoRPHine SULFATE INJ) 2 mg Q3H PRN IV 09/12/17 11:30 09/26/17 11:29 09/14/17 06:16 2 MG Ketorolac Tromethamine (Toradol Inj) 15 mg Q6H PRN IV 09/12/17 14:15 09/17/17 14:14 09/14/17 07:56 15 MG Enoxaparin Sodium (Lovenox Inj) 40 mg DAILY SQ 09/14/17 09:00 10/14/17 08:59 09/14/17 08:32 40 MG Metoclopramide HCl (Reglan Inj) 10 mg Q8 IV. 09/13/17 14:00 09/14/17 13:59 09/14/17 05:37 10 MG Acetaminophen (Tylenol Tab) 650 mg Q6H PO 09/14/17 09:15 10/14/17 09:14 Review of Systems Review of Systems Constitutional: No fever, No chills Eyes: No double vision Neurological: No dizzy Endocrine: No excessive thirst Gastrointestinal: No abdominal pain, No nausea, No vomiting Cardiovascular: No chest pain Respiratory: + shortness of breath (with incisional pain ) Skin: No rash Musculoskeletal: No back pain Male : No painful urination, No blood in urine Physical Exam Vital Signs: Vital Signs Past 12 Hours Date Time Temp Pulse Resp B/P (MAP) Pulse Ox O2 Delivery O2 Flow Rate FiO2 09/14/17 07:08 36.6 65 18 154/78 (103) 93 Room Air 09/14/17 02:32 36.6 64 14 144/71 (95) 93 Room Air 09/13/17 23:15 Room Air 09/13/17 22:59 36.8 68 16 131/65 (87) 95 Room Air Physical Exam: General Appearance: no apparent distress Eyes: bilateral eyes normal inspection ENT: hearing grossly normal Neck: no JVD Respiratory/Chest: no respiratory distress, no accessory muscle use Cardiovascular: no JVD Extremities: normal inspection Neurologic/Psychiatric: alert, normal mood/affect, oriented x 3 Skin: normal color Assessment & Plan Assessment & Plan A/P: Urinary retention AFVSS. Will plan to leave farmer catheter in place, and plan for outpatient TOV in 7-10 days. Will arrange. Continue Flomax. Thanks for the consult. No further management at this time. Recall PRN issues. Thanks for allowing us to participate in this pt's care.
--- NOTE | 2017-09-14 10:06 | SURGERY PROGRESS NOTE ---
DATE: 09/14/2017 Mr. Casillas is 1 day status post a robot-assisted laparoscopic re-repair of a traumatic diaphragmatic hernia in his left hemidiaphragm. I am quite happy with Mr. Casillas. He had a tremendous amount of pain, we drained his PleurX. He really has no fluid and we did not drain much, so I removed the PleurX today. He is afebrile. His vital signs are stable. His heart rate is in the 60s to 70s. He is on room air with good saturations. His white count is 14,890 with hemoglobin of 13.3. Review of his chemistries revealed sodium 136, potassium 3.8, BUN and creatinine are 14 and 1.06. He is tolerating clear liquids this morning, so we are going to stop his IVs. We are going to have him ambulate in the hallway. He has got good bowel sounds. He is nice and soft. He is complaining of abdominal pain. Mr. Casillas has some issues with pain. I think he looks much better. We will have him ambulate in the hallway. Unfortunately, his Garcia catheter is still in place. I will discuss this with urology but I would prefer not to [facility] with the Garcia catheter in place. It is very difficult to get these patients back from the nursing home.
[2017-09-14 12:00] VITALS: BP 133/68; PULSE 66; TEMP 36.6; O2SAT 91
[2017-09-14] MEDS: ACETAMINOPHEN 325 MG TAB PO SCH ×2 (13:37→20:05)
[2017-09-14 15:49] VITALS: BP 152/76; PULSE 68; TEMP 37; O2SAT 95
[2017-09-14 18:21] VITALS: O2SAT 96
[2017-09-14] MEDS: hydrOXYzine HCL 25 MG TAB PO SCH (21:08)
[2017-09-14 23:35] VITALS: BP 137/67; PULSE 71; TEMP 37.1; O2SAT 94
[2017-09-15] MEDS: MoRPHine SULFATE 2 MG/ML CARP IV PRN ×4 (01:19→17:33)
[2017-09-15] MEDS: ACETAMINOPHEN 325 MG TAB PO SCH ×4 (01:51→19:56)
[2017-09-15 07:46] VITALS: BP 161/76; PULSE 72; TEMP 37.1; O2SAT 93
[2017-09-15] MEDS ORDERED: OXYCODONE HCL IR 5 MG TAB (IMMEDIATE RELEASE) PO PRN (08:00)
[2017-09-15 08:32] LABS: BASO % 0.2 %; BASO ABS # 0.02 K/uL (0-0.2); EOS % 1.9 %; EOS ABS # 0.17 K/uL (0-0.5); HEMATOCRIT 39.6 % (42-52); IG# 0.02 K/uL (0.00-0.02); LYMPH % 19.6 %; LYMPH ABS # 1.75 K/uL (1.2-3.4); MEAN CELL VOLUME 85.3 fL (80-100); MEAN CORPUSCULAR HEMOGLOBIN 30.2 pg (25-34); MEAN PLATELET VOLUME 10.2 fL (7.4-10.4); MONO % 12.1 %; MONO ABS # 1.08 K/uL (0.11-0.59); NEUT ABS # 5.87 K/uL (1.4-6.5); PLATELET COUNT 202 K/uL (130-400); RED CELL DISTRIBUTION WIDTH SD 40.1 fL (36.4-46.3); WHITE BLOOD COUNT 8.91 K/uL (4.8-10.8)
[2017-09-15 08:39] LABS: MEAN CORPUSCULAR HGB CONC 35.4 g/dl (32-36)
[2017-09-15] MEDS: TAMSULOSIN HCL 0.4 MG CAP PO SCH (08:51)
[2017-09-15] MEDS: ENOXAPARIN 40 MG/0.4 ML SYR SQ SCH (08:52)
[2017-09-15 09:01] LABS: ALBUMIN 3.1 gm/dl (3.4-5.0); CALCIUM 8.5 mg/dl (8.5-10.1); CREATININE 0.86 mg/dl (0.60-1.40); POTASSIUM 3.9 mmol/L (3.5-5.1); TOTAL PROTEIN 6.6 gm/dl (6.4-8.2)
--- NOTE | 2017-09-15 09:25 | SURGERY PROGRESS NOTE ---
DATE: 09/15/2017 SUBJECTIVE: Mr. Casillas is now 2 days status post a robot-assisted rerepair of a traumatic left hemidiaphragm hernia with incarceration of omentum and colon. Mr. Casillas is interesting. He is extremely tense. He states he is having generalized abdominal pain, but then when asked to specify, he states it was in the central part of his abdomen. He has good bowel sounds. He is passing gas. He is tolerating a regular diet. He has no fevers. His white count this morning is 8910. His heart rate is in the 70s. He is on room air with good saturations. He is ambulating in the hallway. There are couple of issues with Mr. Casillas. One is he was in urinary retention when he came in, but I am going to give him a voiding trial today. This is not optimal, I would like to have this catheter out before he goes back to the intermediate. He is on Flomax. In addition, he is extremely tense. I am going to give him some Ativan to see if that would relax him. I want him ambulating quite a bit today. Otherwise, I think he looks good. His abdomen is soft and interestingly enough, is not tender. His incisions are clean. He is a bit difficult for me to evaluate. I do not believe we have any intra-abdominal issues which causes pain, although that is a possibility. We are probably going to end up keeping him for a couple of days. MAXIMO
[2017-09-15] MEDS: OXYCODONE HCL IR 5 MG TAB (IMMEDIATE RELEASE) PO PRN ×3 (10:19→19:55)
[2017-09-15] MEDS: LORAZEPAM 0.5 MG TAB PO PRN (13:28)
[2017-09-15 16:09] VITALS: BP 137/73; PULSE 59; TEMP 36.6; O2SAT 95
[2017-09-15] MEDS: hydrOXYzine HCL 25 MG TAB PO SCH (21:01)
[2017-09-15 23:15] VITALS: BP 139/76; PULSE 61; TEMP 36.9; O2SAT 96
[2017-09-16] MEDS: MoRPHine SULFATE 2 MG/ML CARP IV PRN ×3 (00:09→15:48)
[2017-09-16] MEDS: ACETAMINOPHEN 325 MG TAB PO SCH ×4 (02:00→20:30)
[2017-09-16] MEDS: LORAZEPAM 0.5 MG TAB PO PRN (04:46)
[2017-09-16] MEDS: OXYCODONE HCL IR 5 MG TAB (IMMEDIATE RELEASE) PO PRN ×3 (07:16→21:41)
[2017-09-16 07:25] VITALS: BP 175/91; PULSE 58; TEMP 37; O2SAT 90
[2017-09-16] MEDS ORDERED: SOD PHOSPHATE/SOD BIPHOSPHATE ENEMA 132 ML BTL PR PRN (08:45)
[2017-09-16] MEDS ORDERED: BISACODYL 10 MG SUPP PR PRN (08:45)
[2017-09-16] MEDS: TAMSULOSIN HCL 0.4 MG CAP PO SCH (09:01)
[2017-09-16] MEDS: ENOXAPARIN 40 MG/0.4 ML SYR SQ SCH (09:02)
[2017-09-16] MEDS: DOCUSATE SODIUM 100 MG CAP PO SCH ×2 (10:39→20:29)
[2017-09-16] MEDS: POLYETHYLENE (MIRALAX) 17 GM PACK PO SCH (10:40)
--- NOTE | 2017-09-16 11:48 | Progress Note ---
Subjective Date of Service: Sep 16, 2017. Subjective Pt evaluation today including: conversation w/ patient, chart review, lab review 51 yo male with UR. Pt had farmer catheter removed yesterday. Voiding on his own, but PVRs remain high. Last one noted on EHR was 290ml. Remains on Flomax. Pt and Dr. Robertson desire for the pt not to return to halfway with farmer catheter in place. Problem List Medical Problems: (1) Abdominal pain Status: Acute (2) Diffuse abdominal pain Status: Acute Review of Systems Constitutional: No fever, No chills Respiratory: No shortness of breath Cardiac: No chest pain Abdomen: + pain, No nausea, No vomiting Male : No dysuria, No hematuria Heme: No abnormal bleeding/bruising Objective Vital Signs Date Time Temp Pulse Resp B/P (MAP) Pulse Ox O2 Delivery O2 Flow Rate FiO2 09/16/17 07:30 Room Air 09/16/17 07:25 37.0 58 17 175/91 (119) 90 Room Air 09/16/17 00:05 Room Air 09/15/17 23:15 36.9 61 16 139/76 (97) 96 Room Air 09/15/17 16:09 36.6 59 17 137/73 (94) 95 Room Air 09/15/17 15:50 Room Air Physical Exam General Appearance: no apparent distress Eyes: normal inspection ENT: hearing grossly normal Neck: no JVD Respiratory/Chest: no respiratory distress, no accessory muscle use Cardiovascular: no JVD Extremities: normal inspection Neurologic/Psychiatric: alert, normal mood/affect, oriented x 3 Skin: normal color Assessment and Plan A/P: Urinary retention Pt voided 500ml, and was straight cathed for an additional 500ml by nursing this afternoon. Will recheck a PVR later today. If PVR >300ml, will replace farmer catheter. Continue Flomax. Will plan for TOV either at the halfway or as an outpatient in 7-10 days. Will arrange.
--- NOTE | 2017-09-16 11:59 | SURGERY PROGRESS NOTE ---
DATE: 09/16/2017 Mr. Casillas was seen today. He is a very anxious man. We gave him Ativan yesterday. His blood pressure is high this morning 175/91. States his pain is better controlled. He is tolerating a regular diet. His abdomen is soft with good bowel sounds. Incisions are clean. He has no fevers. He has no abnormal lab work from yesterday. He has not moved his bowels as of yet but is having flatus. We will give him something to help him move his bowels today. I have been quite happy with him. I think I am going to keep him 1 more day. He has been able to ambulate. His low pain threshold and high anxiety level contribute to make it difficult to relax at all. I did give him Ativan yesterday which did help some. Also have given him morphine. Will see how he looks in the morning. Incidentally, his pathology has come back and the omentum we removed was viable but it did appear to be ischemic.
[2017-09-16 14:57] VITALS: BP 157/72; PULSE 64; TEMP 36.9; O2SAT 95
[2017-09-16] MEDS: hydrOXYzine HCL 25 MG TAB PO SCH (20:30)
[2017-09-16 23:04] VITALS: BP 172/87; PULSE 67; TEMP 36.9; O2SAT 95
[2017-09-17] MEDS: ACETAMINOPHEN 325 MG TAB PO SCH ×2 (02:40→08:52)
[2017-09-17] MEDS: OXYCODONE HCL IR 5 MG TAB (IMMEDIATE RELEASE) PO PRN (06:00)
[2017-09-17 08:16] VITALS: BP 158/76; PULSE 64; TEMP 36.9; O2SAT 94
--- NOTE | 2017-09-17 08:22 | Discharge Instructions ---
Discharge Instructions Date of Service Sep 17, 2017. Admission Reason for Admission: Diaphragmatic Hernia Discharge Discharge Diagnosis / Problem: Acquired left thierry-daiphragmatic hernia ( recurrence) Discharge Goals Goal(s): Decrease discomfort Activity Recommendations Activity Limitations: as noted below Lifting Limitations: gradually increase as tolerated Exercise/Sports Limitations: gradually increase as tolerated May Resume Sexual Activity: when tolerated Shower/Bathe: no limitations Driving or Machine Use: no limitations No weightlifting for one month. May do cardio. Walk!!!! Instructions / Follow-Up Instructions / Follow-Up Your blood pressure has been intermittently elevated here. This may be due to your surgery, pain, urinary retention. Follow up with the on-site physician abou your blood pressure next week. Avoid any narcotics. They narcotics will constipate you. Call my office with any questions. We will call about follow up appointment. Current Hospital Diet Patient's current hospital diet: Regular Diet Discharge Diet Recommended Diet: Regular Diet Procedures Procedures Performed: Laparoscopic Robotic Assisted Diaphragmatic Hernia Repair with Mesh DaVinci Pending Studies Studies pending at discharge: no Medical Emergencies . Who to Call and When: Medical Emergencies: If at any time you feel your situation is an emergency, please call 911 immediately. . Non-Emergent Contact Non-Emergency issues call your: Primary Care Provider . "Provider Documentation" section prepared by Jose Robertson. . VTE Core Measure Inpt VTE Proph given/why not?: Enoxaparin (Lovenox)SQ, SCD's
[2017-09-17] MEDS: DOCUSATE SODIUM 100 MG CAP PO SCH (08:53)
[2017-09-17] MEDS: TAMSULOSIN HCL 0.4 MG CAP PO SCH (08:53)
[2017-09-17] MEDS: POLYETHYLENE (MIRALAX) 17 GM PACK PO SCH (08:53)
[2017-09-17] MEDS: ENOXAPARIN 40 MG/0.4 ML SYR SQ SCH (08:54)
[2017-09-17 10:49] VITALS: BP 158/76; PULSE 64; TEMP 36.9; O2SAT 94
[2017-09-17] MEDS: KETOROLAC TROMETHAMINE 15 MG/ML VIAL IV PRN (12:20)
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
== END 2017-09-17 12:45 | DRG 327 ==
LOC: C.EDB 09:36 → C.MSW 11:24 → ENRESERV 11:48
PROVIDERS: ADMIT Surgery; ATTEND Surgery
PROC: 0BUT4JZ Supplement Diaphragm with Synthetic Substitute, Percutaneous Endoscopic Approach (ICD-10-PCS; principal; 2017-09-13 07:30)
DX: K44.9 Diaphragmatic hernia without obstruction or gangrene (principal); K55.9 Vascular disorder of intestine, unspecified; F17.200 Nicotine dependence, unspecified, uncomplicated; Z79.82 Long term (current) use of aspirin; I10 Essential (primary) hypertension; F41.9 Anxiety disorder, unspecified

== ENCOUNTER → 2017-10-06 | Outpatient (CLI) | payer OTHER ==
--- NOTE | 2017-10-06 11:23 | DIAGNOSTIC IMAGING REPORT ---
CHEST 2 VIEWS ROUTINE CLINICAL HISTORY: DIAPHRAGMATIC HERNIA COMPARISON STUDY: September 14, 2017 FINDINGS: The cardiac and mediastinal contours are normal. There is no failure. There is no focal pulmonary consolidation. There are healing left-sided rib fractures. A hernia mesh is visualized the level the left hemidiaphragm. There is minor blunting of the left lateral costophrenic angle. The left-sided drainage catheter has been removed. [No pneumothorax is visualized. IMPRESSION: 1. Interval removal of the left-sided drainage catheter 2. Postsurgical changes the level the left hemidiaphragm 3. Minor blunting of the left lateral costophrenic angle 4. Healing left-sided rib fractures Electronically signed by: Angel Rodriguez M.D. 10/06/2017 11:22 AM Dictated Date/Time: 10/06/2017 11:20 AM
== END | disposition home or self-care (01) ==
LOC: C.RAD1850 11:05
PROVIDERS: ATTEND Surgery
DX: K44.9 Diaphragmatic hernia without obstruction or gangrene (principal); S22.42XA Multiple fractures of ribs, left side, initial encounter for closed fracture; X58.XXXA Exposure to other specified factors, initial encounter

== ENCOUNTER 2018-09-28 16:32 | Observation (INO) ==
[2018-09-28] MEDS ORDERED: ONDANSETRON INJ 2 MG/ML 2 ML VIAL IV STA (16:50)
[2018-09-28] MEDS ORDERED: HYDROmorphone INJ 1 MG/ML SYRINGE IV STA ×3 (16:50→18:15)
[2018-09-28] MEDS ORDERED: SODIUM CHLORIDE 0.9% 1000ML 1,000 ML IV SCH (17:00)
[2018-09-28 17:29] LABS: Basophils # (auto) 0.03 K/uL (0-0.2); Basophils % (auto) 0.4 %; Eosinophils # (auto) 0.07 K/uL (0-0.5); Eosinophils % (auto) 0.9 %; Hematocrit (blood only) 41.9 % (42-52); Hemoglobin 14.6 g/dL (14.0-18.0); Immature Granulocytes # (auto) 0.01 K/uL (0.00-0.02); Immature Granulocytes % (auto) 0.1 %; Lymphocytes % (auto) 29.9 %; Mean Corpuscular Hgb Conc 34.8 g/dL (32-36); Mean Corpuscular Volume 86.2 fL (80-100); Mean Platelet Volume 10.3 fL (7.4-10.4); Monocytes # (auto) 0.68 K/uL (0.11-0.59); Monocytes % (auto) 8.5 %; Neutrophils # (auto) 4.85 K/uL (1.4-6.5); Neutrophils % (auto) 60.2 %; Platelet Count 235 K/uL (130-400); RDW Coefficient of Variation 13.1 % (11.5-14.5); RDW Standard Deviation 41.4 fL (36.4-46.3); Red Blood Count 4.86 M/uL (4.7-6.1); White Blood Count 8.04 K/uL (4.8-10.8)
--- NOTE | 2018-09-28 17:36 | CT Scan Report ---
ADDENDUM ADDENDUM: There is a fat-containing supraumbilical hernia seen on axial image #97. This is unchanged from 01/06/2018 but new from the preoperative examination dated 09/11/2017. Electronically signed by: Gurvinder Richard M.D. 09/28/2018 7:[address] SCAN OF THE ABDOMEN AND PELVIS WITHOUT IV CONTRAST CLINICAL HISTORY: Lower abdominal pain. COMPARISON STUDY: Abdominal CT scans dated 01/06/2018 and 09/11/2017. TECHNIQUE: CT scan of the abdomen and pelvis is performed from the lung bases to the proximal femora. Images are reviewed in the axial, sagittal, and coronal planes. IV contrast was not administered for this examination as per the referring clinician. Note that the examination was performed in suboptim al fashion without oral and IV contrast. A dose lowering technique was utilized adhering to the princ iplSammi. The examination is degraded by motion artifact. CT DOSE: 368.31 mGy.cm FINDINGS: Lung bases: The heart is normal in size and without pericardial effusion. Postoperative change is not ed at the left lung base/left hemidiaphragm. There is no airspace consolidation or pleural effusion. Liver: The unenhanced liver is normal in size, contour, and attenuation. There is no intrahepatic jessica iary ductal dilatation. Gallbladder: Unremarkable. Spleen: Normal in size and attenuation. Pancreas: The unenhanced pancreas is grossly unremarkable. Adrenal glands: Unremarkable. Kidneys: The unenhanced kidneys are normal in size and without hydronephrosis. There are no renal maddie culi identified. An 11 mm left renal cyst is unchanged. Abdominal vasculature: The abdominal aorta is normal in course and caliber noting moderate to advance d atherosclerotic calcification. Bowel: Clonic fecal retention is noted. No bowel obstruction is seen. The appendix is well-visualize d and normal. Peritoneum: There is no intraperitoneal free air or abdominal ascites. There is a small fat-containin g umbilical hernia. Lymphadenopathy: None. Pelvic viscera: There is median lobe hypertrophy of the prostate gland. The bladder is mildly distend ed but otherwise normal in appearance. The seminal vesicles are normal as imaged. Skeletal structures: There is mild lumbosacral spondylosis. No lytic or blastic lesions are seen. The re are healed left posterior rib fractures. IMPRESSION: 1. Suboptimal examination without oral and IV contrast. 2. There are no acute infectious or inflammatory findings in the abdomen or pelvis. Electronically signed by: Gurvinder Richard M.D. 09/28/2018 5:35 PM
[2018-09-28 17:46] LABS: Alanine Aminotransferase 58 U/L (12-78); Albumin Level 4.2 gm/dl (3.4-5.0); Aspartate Aminotransferase 55 U/L (15-37); BUN Creatinine Ratio 10.9 (10-20); Blood Urea Nitrogen 12 mg/dl (7-18); C Reactive Protein < 0.29 mg/dl (0-0.29); Calcium 8.9 mg/dl (8.5-10.1); Carbon Dioxide 23 mmol/L (21-32); Chloride 109 mmol/L (98-107); Creatinine Clr Calc Pharmacy 90.1 ml/min; Est GFR (African American) 92.7; Glucose 91 mg/dl (70-99); Potassium 3.8 mmol/L (3.5-5.1); Sodium 140 mmol/L (136-145)
[2018-09-28 17:49] LABS: Albumin Globulin Ratio 1.3 (0.9-2); Alkaline Phosphatase 71 U/L (45-117); Bilirubin,Total 0.5 mg/dl (0.2-1); Globulin 3.2 gm/dl (2.5-4.0); Total Protein 7.4 gm/dl (6.4-8.2)
[2018-09-28 18:16] LABS: Appearance Urine Clear (Clear); Bilirubin Urine Negative (Negative); Blood Urine Negative (Negative); Color Urine Yellow; Glucose Urine UA Negative (Negative); Ketones Urine Negative (Negative); Leukocyte Esterase Urine Negative (Negative); Nitrite Urine Negative (Negative); Protein Urine Negative (Negative); Specific Gravity Urine 1.008 (1.000-1.030); Urobilinogen Urine Negative (Negative); pH Urine 7.5 (4.5-7.5)
--- NOTE | 2018-09-28 20:36 | History & Physical Report ---
Date of Service September 28, 2018 Assessment & Plan (1) Pain: The patient has pain in the lower thoracic/upper abdominal area. The etiology is unclear. I reviewed the radiologic studies with the radiologist. There are 2 hernias but there not tender and palpation does not re-create his discomfort. The CT does not demonstrate clearly a recurrence of the hernia. The etiology of the pain is unclear at the present time but there is no intra- abdominal source that I can identify and there is certainly no peritonitis. Going to place the patient under observation status for pain control. He will be kept n.p.o. with serial exams. We will further evaluate as time progresses. Present on Admission?: Yes History of Present Illness Chief Complaint: Upper abdominal/lower thorax pain Primary Care Provider: CHAVO Besnon This is a 52-year-old male who presents to the emergency room with a complaint of pain that began in the subcostal region in the mid axillary line on the left and then radiated and now becomes involved in the lower thorax upper abdominal area mostly he points to the subcostal region. The patient had repair of a diaphragmatic hernia and September 2017. He stated he has had some mild discomfort intermittently. Yesterday he stated that he coughed and sneezed at the same time after which he developed pain that began in the mid axillary line at the costal margin on the left. Over the day the pain persisted and increased in intensity. There is a sharp component. He has occasional paroxysms of increased intensity that he describes as cramps. He has not had nausea. He denies fever. His bowels do not move well. He has chronic constipation but he has not had a change in those bowel habits and he denies melena and hematochezia. He felt that he may have had a bloated sensation beneath the midline incision that is located one half the distance between the xiphoid and the umbilicus but there is no pain at that site at the present time. Upon arrival in the emergency room he had difficulty sitting still due to the discomfort. It required IV pain medicine in order to reduce the discomfort enough so that he could lie still for a CT scan. Allergies Allergy/AdvReac Type Severity Reaction Status Date / Time No Known Allergies Allergy Verified 09/28/18 17:30 Home Medications Home Medications Medication Instructions Recorded Confirmed Type amlodipine 5 mg PO DAILY 09/28/18 09/28/18 History aspirin 81 mg PO DAILY 09/28/18 09/28/18 History atorvastatin 10 mg PO DAILY 09/28/18 09/28/18 History diphenhydramine HCl 50 mg PO HS 09/28/18 09/28/18 History hydroxyzine pamoate 100 mg PO HS 09/28/18 09/28/18 History levalbuterol tartrate [Xopenex HFA] 2 inh INHALATION Q6H PRN 09/28/18 09/28/18 History omeprazole 20 mg PO DAILY 09/28/18 09/28/18 History tamsulosin 0.4 mg PO DAILY 09/28/18 09/28/18 History Past Med/Surg History Medical History Hypercholesteremia Hypertension Surgical History S/P bilateral inguinal hernia repair S/P hernia repair Diaphragmatic hernia Social History Current Living Situation: Other Current Living Situation Comment: custodial Feels Safe at Home: Yes Smoking Status: Current every day smoker Hx Alcohol Use: No Review of Systems All systems reviewed & are unremarkable except as noted in HPI & below Physical Exam Vital Signs (Past 24 Hours): Last Vital Signs Temp 37.0 C 09/28/18 16:36 Pulse 72 09/28/18 18:30 Resp 20 09/28/18 18:30 BP 167/74 H 09/28/18 18:30 Pulse Ox 96 09/28/18 18:30 Constitutional: well developed and well nourished Neck: trachea midline, no thyromegaly Respiratory: normal respiratory effort, lungs clear to auscultation Cardiovascular: Rate/Rhythm: regular rate and regular rhythm Gastrointestinal (Abdomen): Inspection/Auscultation: normal bowel sounds; abdomen not distended Percussion/Palpation: + abdomen tender (Minimal subcostal tenderness mostly towards the left), abdomen soft and + hernia (There is a small umbilical hernia and a small hernia beneath the upper midline incision but these are easily reduced and they are not tender and they certainly do not re-create his discomfort with palpation); no guarding Skin: no rashes, warm and dry Lymphatic: no cervical lymphadenopathy Results & Data Laboratory Results 09/28/18 09/28/18 09/28/18 Range/Units 17:59 17:17 17:17 WBC (4.8-10.8) K/uL RBC (4.7-6.1) M/uL Hgb (14.0-18.0) g/dL Hct (42-52) % MCV (80-100) fL MCH (25-34) pg MCHC (32-36) g/dL RDW Std Deviation (36.4-46.3) fL RDW Coeff of Blanco (11.5-14.5) % Plt Count (130-400) K/uL MPV (7.4-10.4) fL Immature Gran % (Auto) % Neut % (Auto) % Lymph % (Auto) % [place] % (Auto) % Eos % (Auto) % Baso % (Auto) % Immature Gran # (Auto) (0.00-0.02) K/uL Neut # (Auto) (1.4-6.5) K/uL Lymph # (Auto) (1.2-3.4) K/uL [place] # (Auto) (0.11-0.59) K/uL Eos # (Auto) (0-0.5) K/uL Baso # (Auto) (0-0.2) K/uL ESR (0-14) mm/hr Sodium 140 (136-145) mmol/L Potassium 3.8 (3.5-5.1) mmol/L Chloride 109 H (98-107) mmol/L Carbon Dioxide 23 (21-32) mmol/L Anion Gap 8.0 (3-11) BUN 12 (7-18) mg/dl Creatinine 1.07 (0.6-1.4) mg/dl Est Cr Clr Drug Dosing 90.1 ml/min Est GFR ( Amer) 92.7 Est GFR (Non-Af Amer) 80.0 BUN/Creatinine Ratio 10.9 (10-20) Glucose 91 (70-99) mg/dl Lactate 1.1 (0.4-2.0) mmol/L Calcium 8.9 (8.5-10.1) mg/dl Total Bilirubin 0.5 (0.2-1) mg/dl AST 55 H (15-37) U/L ALT 58 (12-78) U/L Alkaline Phosphatase 71 (45-117) U/L C-Reactive Protein < 0.29 (0-0.29) mg/dl Total Protein 7.4 (6.4-8.2) gm/dl Albumin 4.2 (3.4-5.0) gm/dl Globulin 3.2 (2.5-4.0) gm/dl Albumin/Globulin Ratio 1.3 (0.9-2) Lipase 148 (73-393) U/L Urine Color Yellow Urine Appearance Clear (Clear) Urine pH 7.5 (4.5-7.5) Ur Specific [place] 1.008 (1.000-1.030) Urine Protein Negative (Negative) Urine Glucose (UA) Negative (Negative) Urine Ketones Negative (Negative) Urine Blood Negative (Negative) Urine Nitrite Negative (Negative) Urine Bilirubin Negative (Negative) Urine Urobilinogen Negative (Negative) Ur Leukocyte Esterase Negative (Negative) 09/28/18 09/28/18 Range/Units 17:17 17:17 WBC 8.04 (4.8-10.8) K/uL RBC 4.86 (4.7-6.1) M/uL Hgb 14.6 (14.0-18.0) g/dL Hct 41.9 L (42-52) % MCV 86.2 (80-100) fL MCH 30.0 (25-34) pg MCHC 34.8 (32-36) g/dL RDW Std Deviation 41.4 (36.4-46.3) fL RDW Coeff of Blanco 13.1 (11.5-14.5) % Plt Count 235 (130-400) K/uL MPV 10.3 (7.4-10.4) fL Immature Gran % (Auto) 0.1 % Neut % (Auto) 60.2 % Lymph % (Auto) 29.9 % [place] % (Auto) 8.5 % Eos % (Auto) 0.9 % Baso % (Auto) 0.4 % Immature Gran # (Auto) 0.01 (0.00-0.02) K/uL Neut # (Auto) 4.85 (1.4-6.5) K/uL Lymph # (Auto) 2.40 (1.2-3.4) K/uL [place] # (Auto) 0.68 H (0.11-0.59) K/uL Eos # (Auto) 0.07 (0-0.5) K/uL Baso # (Auto) 0.03 (0-0.2) K/uL ESR 10 (0-14) mm/hr Sodium (136-145) mmol/L Potassium (3.5-5.1) mmol/L Chloride (98-107) mmol/L Carbon Dioxide (21-32) mmol/L Anion Gap (3-11) BUN (7-18) mg/dl Creatinine (0.6-1.4) mg/dl Est Cr Clr Drug Dosing ml/min Est GFR ( Amer) Est GFR (Non-Af Amer) BUN/Creatinine Ratio (10-20) Glucose (70-99) mg/dl Lactate (0.4-2.0) mmol/L Calcium (8.5-10.1) mg/dl Total Bilirubin (0.2-1) mg/dl AST (15-37) U/L ALT (12-78) U/L Alkaline Phosphatase (45-117) U/L C-Reactive Protein (0-0.29) mg/dl Total Protein (6.4-8.2) gm/dl Albumin (3.4-5.0) gm/dl Globulin (2.5-4.0) gm/dl Albumin/Globulin Ratio (0.9-2) Lipase (73-393) U/L Urine Color Urine Appearance (Clear) Urine pH (4.5-7.5) Ur Specific [place] (1.000-1.030) Urine Protein (Negative) Urine Glucose (UA) (Negative) Urine Ketones (Negative) Urine Blood (Negative) Urine Nitrite (Negative) Urine Bilirubin (Negative) Urine Urobilinogen (Negative) Ur Leukocyte Esterase (Negative) Diagnostic Findings ADDENDUM: There is a fat-containing supraumbilical hernia seen on axial image #97. This is unchanged from 01/06/2018 but new from the preoperative examination dated 09/11/2017. Electronically signed by: Gurvinder Richard M.D. 09/28/2018 7:[address] SCAN OF THE ABDOMEN AND PELVIS WITHOUT IV CONTRAST CLINICAL HISTORY: Lower abdominal pain. COMPARISON STUDY: Abdominal CT scans dated 01/06/2018 and 09/11/2017. TECHNIQUE: CT scan of the abdomen and pelvis is performed from the lung bases to the proximal femora. Images are reviewed in the axial, sagittal, and coronal planes. IV contrast was not administered for this examination as per the referring clinician. Note that the examination was performed in suboptimal fashion without oral and IV contrast. A dose lowering technique was utilized adhering to the principles of ALARA. The examination is degraded by motion artifact. CT DOSE: 368.31 mGy.cm FINDINGS: Lung bases: The heart is normal in size and without pericardial effusion. Postoperative change is noted at the left lung base/left hemidiaphragm. There is no airspace consolidation or pleural effusion. Liver: The unenhanced liver is normal in size, contour, and attenuation. There is no intrahepatic biliary ductal dilatation. Gallbladder: Unremarkable. Spleen: Normal in size and attenuation. Pancreas: The unenhanced pancreas is grossly unremarkable. Adrenal glands: Unremarkable. Kidneys: The unenhanced kidneys are normal in size and without hydronephrosis. There are no renal calculi identified. An 11 mm left renal cyst is unchanged. Abdominal vasculature: The abdominal aorta is normal in course and caliber noting moderate to advanced atherosclerotic calcification. Bowel: Clonic fecal retention is noted. No bowel obstruction is seen. The appendix is well-visualized and normal. Peritoneum: There is no intraperitoneal free air or abdominal ascites. There is a small fat-containing umbilical hernia. Lymphadenopathy: None. Pelvic viscera: There is median lobe hypertrophy of the prostate gland. The bladder is mildly distended but otherwise normal in appearance. The seminal vesicles are normal as imaged. Skeletal structures: There is mild lumbosacral spondylosis. No lytic or blastic lesions are seen. There are healed left posterior rib fractures. IMPRESSION: 1. Suboptimal examination without oral and IV contrast. 2. There are no acute infectious or inflammatory findings in the abdomen or pelvis.
[2018-09-28] MEDS ORDERED: HYDROmorphone INJ 0.5 MG/0.5 ML SYR IV STA (20:54)
--- NOTE | 2018-09-28 21:09 | Emergency Department Note ---
History of Present Illness General Chief complaint: Abdominal Pain Stated complaint: pain above umbilicus, hernia rupture Time Seen by Provider: 09/28/18 16:40 History of Present Illness Maximum Pain Intensity: 8 This is a 52-year-old male prisoner presenting to the emergency department for evaluation of severe mid abdominal pain worsening over the past 4 hours. 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 The patient reports requiring multiple trocar sites in order to complete his surgery. The patient states that 2 days ago he began with URI symptoms including a cough. He had one episode of coughing yesterday and reports having a bulge-like sensation with minimal pain at 1 of the midline trocar site scars. The patient is currently under the care of CHAVO Benson, and put in a request to be seen by the healthcare staff. The patient states that 4 hours ago his symptoms dramatically worsened and increased in severity. The estela walker rates his pain as an 8/10, describing it as a burning and sharp pain. This is 1 of the worst pains he has ever experienced. He has not had nausea, fever, chest pain, chest tightness, or difficulty using the bathroom. The patient locates the pain directly over the old scar, and his pain worsens when he presses in the area. He has not had anything [id number] for his symptoms. Home Medications Home Medications Medication Instructions Recorded Confirmed Type amlodipine 5 mg PO DAILY 09/28/18 09/28/18 History aspirin 81 mg PO DAILY 09/28/18 09/28/18 History atorvastatin 10 mg PO DAILY 09/28/18 09/28/18 History diphenhydramine HCl 50 mg PO HS 09/28/18 09/28/18 History hydroxyzine pamoate 100 mg PO HS 09/28/18 09/28/18 History levalbuterol tartrate [Xopenex HFA] 2 inh INHALATION Q6H PRN 09/28/18 09/28/18 History omeprazole 20 mg PO DAILY 09/28/18 09/28/18 History tamsulosin 0.4 mg PO DAILY 09/28/18 09/28/18 History Allergies Allergy/AdvReac Type Severity Reaction Status Date / Time No Known Allergies Allergy Verified 09/28/18 17:30 Past Med/Surg History Medical History Hypercholesteremia Hypertension Surgical History S/P bilateral inguinal hernia repair S/P hernia repair Diaphragmatic hernia Social History Current Living Situation: Other Current Living Situation Comment: jail Feels Safe at Home: Yes Smoking Status: Current every day smoker Hx Alcohol Use: No Review of Systems A total of 10 systems reviewed and were otherwise negative Physical Exam Vital Signs Vital Signs - 24 hr 09/28/18 16:36 09/28/18 17:41 09/28/18 18:06 Temperature 37.0 C Temperature Source Oral Sepsis Recent Fever Within 48 Hours No Sepsis Action Taken by Nursing No Action Required Pulse Rate 85 64 76 Pulse Rate from SpO2 Sensor Pulse Rhythm Regular Pulse Strength Normal Respiratory Rate 20 20 12 Respiratory Effort / Characteristics Non-Labored Respiratory Depth Normal Respiratory Pattern Regular Blood Pressure 174/111 H 152/75 H 159/79 H Blood Pressure Mean 132 100 105 Blood Pressure Position Sitting Pulse Oximetry 95 Oxygen Delivery Method Room Air 09/28/18 18:30 Temperature Temperature Source Sepsis Recent Fever Within 48 Hours Sepsis Action Taken by Nursing Pulse Rate 72 Pulse Rate from SpO2 Sensor 73 Pulse Rhythm Pulse Strength Respiratory Rate 20 Respiratory Effort / Characteristics Respiratory Depth Respiratory Pattern Blood Pressure 167/74 H Blood Pressure Mean 105 Blood Pressure Position Pulse Oximetry 96 Oxygen Delivery Method VITALS: Vitals are noted on the nurse's note and reviewed by myself. Vital signs stable. GENERAL: Well-developed white male who appears moderate to severe discomfort secondary to his stated complaint. The patient is pacing back and forth in the emergency department room. He is holding his abdomen with both of his hands. Exam is somewhat limited secondary to the patient's discomfort. HEAD: Normocephalic atraumatic. EYES: Pupils equal round and reactive to light and accommodation. Conjunctivae without injection, sclerae without icterus. Extraocular movements intact. NOSE: Patent, turbinates without inflammation or discharge. NECK: Supple without nuchal rigidity. No lymphadenopathy. No thyromegaly. Cervical spine is nontender. HEART: Regular rate and rhythm without murmurs gallops or rubs. LUNGS: Clear to auscultation bilaterally without wheezes, rales or rhonchi. No retractions or accessory muscle use. ABDOMEN: Positive normal bowel sounds x 4. Soft with distinct palpable tenderness in an area a few centimeters above the umbilicus. There does appear to be a small 3 to 4 cm hernia on exam in this area that is exquisitely tender. There is no reddening of the skin, and this does not appear distinctly reducible. There is some mild tenderness just to the right of this hernia. No significant upper abdominal tenderness. No CVA tenderness. MUSCULOSKELETAL: No muscle atrophy, erythema, or edema noted. Full range of motion in all extremities. NEURO: Patient was alert and oriented to person place and time. CN II through XII grossly intact SKIN: The skin was without additional significant rashes, erythema, edema, or bruising. Capillary refill less than 2 seconds. Course Administered Medications Discontinued Medications Hydromorphone HCl (Dilaudid) 1 mg IV NOW STA Stop: 09/28/18 16:51 Last Admin: 09/28/18 17:09 Dose: 1 mg Documented by: [id number] Hydromorphone HCl (Dilaudid) 1 mg IV NOW STA Stop: 09/28/18 17:42 Last Admin: 09/28/18 17:44 Dose: 1 mg Documented by: [id number] Hydromorphone HCl (Dilaudid) 1 mg IV NOW STA Stop: 09/28/18 18:16 Last Admin: 09/28/18 18:33 Dose: 1 mg Documented by: [id number] Hydromorphone HCl (Dilaudid) 0.5 mg IV NOW STA Stop: 09/28/18 20:55 Last Admin: 09/28/18 21:00 Dose: 0.5 mg Documented by: [id number] Sodium Chloride (Nss 1000ml) 1,000 mls @ 999 mls/hr IV .Q1H1M [id number] Stop: 09/28/18 18:00 Last Infusion: 09/28/18 18:25 Dose: 0 mls/hr Documented by: [id number] Admin: 09/28/18 17:09 Dose: 999 mls/hr Documented by: [id number] Ondansetron HCl (Zofran) 4 mg IV NOW STA Stop: 09/28/18 16:51 Last Admin: 09/28/18 17:10 Dose: 4 mg Documented by: [id number] Medical Decision Making Differential Diagnosis Differential diagnosis: Etiologies such as incarcerated hernia, biliary colic, cholecystitis, hepatitis, pancreatitis, cardiac disease, pancreatitis, gastritis, peptic ulcer disease, appendicitis, cystitis, diverticulitis, mesenteric ischemia, inflammatory bowel disease, ileus, bowel obstruction, testicular/adnexal torsion, aortic pathology, shingles, as well as others were considered Laboratory Data Result diagrams: 09/28/18 17:17 09/28/18 17:17 Lab Results 09/28/18 09/28/18 09/28/18 Range/Units 17:17 17:17 17:17 WBC 8.04 (4.8-10.8) K/uL RBC 4.86 (4.7-6.1) M/uL Hgb 14.6 (14.0-18.0) g/dL Hct 41.9 L (42-52) % MCV 86.2 (80-100) fL MCH 30.0 (25-34) pg MCHC 34.8 (32-36) g/dL RDW Std Deviation 41.4 (36.4-46.3) fL RDW Coeff of Blanco 13.1 (11.5-14.5) % Plt Count 235 (130-400) K/uL MPV 10.3 (7.4-10.4) fL Immature Gran % (Auto) 0.1 % Neut % (Auto) 60.2 % Lymph % (Auto) 29.9 % [place] % (Auto) 8.5 % Eos % (Auto) 0.9 % Baso % (Auto) 0.4 % Immature Gran # (Auto) 0.01 (0.00-0.02) K/uL Neut # (Auto) 4.85 (1.4-6.5) K/uL Lymph # (Auto) 2.40 (1.2-3.4) K/uL [place] # (Auto) 0.68 H (0.11-0.59) K/uL Eos # (Auto) 0.07 (0-0.5) K/uL Baso # (Auto) 0.03 (0-0.2) K/uL ESR 10 (0-14) mm/hr Sodium 140 (136-145) mmol/L Potassium 3.8 (3.5-5.1) mmol/L Chloride 109 H (98-107) mmol/L Carbon Dioxide 23 (21-32) mmol/L Anion Gap 8.0 (3-11) BUN 12 (7-18) mg/dl Creatinine 1.07 (0.6-1.4) mg/dl Est Cr Clr Drug Dosing 90.1 ml/min Est GFR ( Amer) 92.7 Est GFR (Non-Af Amer) 80.0 BUN/Creatinine Ratio 10.9 (10-20) Glucose 91 (70-99) mg/dl Lactate (0.4-2.0) mmol/L Calcium 8.9 (8.5-10.1) mg/dl Total Bilirubin 0.5 (0.2-1) mg/dl AST 55 H (15-37) U/L ALT 58 (12-78) U/L Alkaline Phosphatase 71 (45-117) U/L C-Reactive Protein < 0.29 (0-0.29) mg/dl Total Protein 7.4 (6.4-8.2) gm/dl Albumin 4.2 (3.4-5.0) gm/dl Globulin 3.2 (2.5-4.0) gm/dl Albumin/Globulin Ratio 1.3 (0.9-2) Lipase 148 (73-393) U/L Urine Color Urine Appearance (Clear) Urine pH (4.5-7.5) Ur Specific [place] (1.000-1.030) Urine Protein (Negative) Urine Glucose (UA) (Negative) Urine Ketones (Negative) Urine Blood (Negative) Urine Nitrite (Negative) Urine Bilirubin (Negative) Urine Urobilinogen (Negative) Ur Leukocyte Esterase (Negative) 09/28/18 09/28/18 Range/Units 17:17 17:59 WBC (4.8-10.8) K/uL RBC (4.7-6.1) M/uL Hgb (14.0-18.0) g/dL Hct (42-52) % MCV (80-100) fL MCH (25-34) pg MCHC (32-36) g/dL RDW Std Deviation (36.4-46.3) fL RDW Coeff of [place]anco (11.5-14.5) % Plt Count (130-400) K/uL MPV (7.4-10.4) fL Immature Gran % (Auto) % Neut % (Auto) % Lymph % (Auto) % [place] % (Auto) % Eos % (Auto) % Baso % (Auto) % Immature Gran # (Auto) (0.00-0.02) K/uL Neut # (Auto) (1.4-6.5) K/uL Lymph # (Auto) (1.2-3.4) K/uL [place] # (Auto) (0.11-0.59) K/uL Eos # (Auto) (0-0.5) K/uL Baso # (Auto) (0-0.2) K/uL ESR (0-14) mm/hr Sodium (136-145) mmol/L Potassium (3.5-5.1) mmol/L Chloride (98-107) mmol/L Carbon Dioxide (21-32) mmol/L Anion Gap (3-11) BUN (7-18) mg/dl Creatinine (0.6-1.4) mg/dl Est Cr Clr Drug Dosing ml/min Est GFR ( Amer) Est GFR (Non-Af Amer) BUN/Creatinine Ratio (10-20) Glucose (70-99) mg/dl Lactate 1.1 (0.4-2.0) mmol/L Calcium (8.5-10.1) mg/dl Total Bilirubin (0.2-1) mg/dl AST (15-37) U/L ALT (12-78) U/L Alkaline Phosphatase (45-117) U/L C-Reactive Protein (0-0.29) mg/dl Total Protein (6.4-8.2) gm/dl Albumin (3.4-5.0) gm/dl Globulin (2.5-4.0) gm/dl Albumin/Globulin Ratio (0.9-2) Lipase (73-393) U/L Urine Color Yellow Urine Appearance Clear (Clear) Urine pH 7.5 (4.5-7.5) Ur Specific [place] 1.008 (1.000-1.030) Urine Protein Negative (Negative) Urine Glucose (UA) Negative (Negative) Urine Ketones Negative (Negative) Urine Blood Negative (Negative) Urine Nitrite Negative (Negative) Urine Bilirubin Negative (Negative) Urine Urobilinogen Negative (Negative) Ur Leukocyte Esterase Negative (Negative) Imaging Data Radiologist's Impression: ADDENDUM ADDENDUM: There is a fat-containing supraumbilical hernia seen on axial image #97. This is unchanged from 01/06/2018 but new from the preoperative examination dated 09/11/2017. Electronically signed by: Gurvinder Richard M.D. 09/28/2018 7:[address] SCAN OF THE ABDOMEN AND PELVIS WITHOUT IV CONTRAST CLINICAL HISTORY: Lower abdominal pain. COMPARISON STUDY: Abdominal CT scans dated 01/06/2018 and 09/11/2017. TECHNIQUE: CT scan of the abdomen and pelvis is performed from the lung bases to the proximal femora. Images are reviewed in the axial, sagittal, and coronal planes. IV contrast was not administered for this examination as per the referring clinician. Note that the examination was performed in suboptimal fashion without oral and IV contrast. A dose lowering technique was utilized adhering to the principles of ALARA. The examination is degraded by motion artifact. CT DOSE: 368.31 mGy.cm FINDINGS: Lung bases: The heart is normal in size and without pericardial effusion. Postoperative change is noted at the left lung base/left hemidiaphragm. There is no airspace consolidation or pleural effusion. Liver: The unenhanced liver is normal in size, contour, and attenuation. There is no intrahepatic biliary ductal dilatation. Gallbladder: Unremarkable. Spleen: Normal in size and attenuation. Pancreas: The unenhanced pancreas is grossly unremarkable. Adrenal glands: Unremarkable. Kidneys: The unenhanced kidneys are normal in size and without hydronephrosis. There are no renal calculi identified. An 11 mm left renal cyst is unchanged. Abdominal vasculature: The abdominal aorta is normal in course and caliber noting moderate to advanced atherosclerotic calcification. Bowel: Clonic fecal retention is noted. No bowel obstruction is seen. The appendix is well-visualized and normal. Peritoneum: There is no intraperitoneal free air or abdominal ascites. There is a small fat-containing umbilical hernia. Lymphadenopathy: None. Pelvic viscera: There is median lobe hypertrophy of the prostate gland. The bladder is mildly distended but otherwise normal in appearance. The seminal vesicles are normal as imaged. Skeletal structures: There is mild lumbosacral spondylosis. No lytic or blastic lesions are seen. There are healed left posterior rib fractures. IMPRESSION: 1. Suboptimal examination without oral and IV contrast. 2. There are no acute infectious or inflammatory findings in the abdomen or pelvis. MDM Narrative Physical exam and history were performed. Nursing notes, EMR, and Medication List were personally reviewed. Patient appears to have severe abdominal pain bringing him to the emergency department this evening. The patient is markedly uncomfortable on presentation. IV access was established and labs were obtained. The patient was hydrated with normal saline and given several doses of IV Dilaudid for pain control. Due to the patient's discomfort and concern for his well-being a CT scan without contrast was performed emergently. It did take multiple rounds of pain me dication to get the patient comfortable enough to even perform the CT scan. The patient's blood work is as above and was reviewed. He does not have a significantly elevated white blood cell count, gross anemia, bandemia, or significant electrolyte imbalance. Lipase and transaminases are not diagnostic. Urine is without evidence of infection. Lactic is negative, making mesenteric ischemia less likely. We did obtain cultures which are pending. The patient CT scan is as above and does show several small hernias but no obvious additional findings. The concern is the patient may have an inc arcerated hernia, however with the level of his discomfort it was difficult to fully determine this. He felt much better after pain medication. The patient case was discussed with my attending physician, Dr. Hawley, and we did subsequently discuss the case with the on-call general surgeon, Dr. Koby iyer. Dr. Lane was able to evaluate the patient here in the emergency department. Please see Dr. Lane's dictation for further patient course, plan, and disposition. The chart was completed utilizing [employer] Speech Voice Recognition Software. Grammatical errors, random word insertions, pronoun errors, and incomplete sentences are an occasional consequence of this system due to software limitations, ambient noise, and hardware issues. Any formal questions or concerns about the content, text, or information contained within the body of this dictation should be directly addressed to the provider for clarification. . Impression & Plan Abdominal pain, Abdominal wall hernia Discharge Plan Visit Data Chief Complaint: Abdominal Pain Stated Complaint: pain above umbilicus, hernia rupture ED Provider: Deandre Hawley ED Midlevel Provider: Julio Arenas Discharge Problem: Abdominal pain, Abdominal wall hernia Forms Stand Alone Forms: Call Back Authorization, My [facility] [employer] Prescriptions Prescriptions: No Action diphenhydramine HCl 50 mg Capsule 50 mg PO HS RF: 0 atorvastatin 10 mg Tablet 10 mg PO DAILY RF: 0 hydroxyzine pamoate 50 mg Capsule 100 mg PO HS RF: 0 amlodipine 5 mg Tablet 5 mg PO DAILY RF: 0 tamsulosin 0.4 mg Capsule 0.4 mg PO DAILY RF: 0 aspirin 81 mg Tablet,Chewable 81 mg PO DAILY RF: 0 omeprazole 20 mg Tablet,Delayed Release (Dr/Ec) 20 mg PO DAILY RF: 0 levalbuterol tartrate [Xopenex HFA] 45 mcg/actuation Hfa Aerosol Inhaler 2 inh INHALATION Q6H PRN (Reason: Shortness Of Breath) RF: 0 Referrals Referrals: Marcelino TONY [Primary Care Provider] -
[2018-09-28] MEDS ORDERED: HYDROmorphone INJ 1 MG/ML SYRINGE ONE (22:42)
[2018-09-28] MEDS: NSS + 20MEQ KCL 20 MEQ/1,000 ML BAG IV SCH (23:21)
[2018-09-29] MEDS: HYDROmorphone INJ 1 MG/ML SYRINGE IV PRN ×6 (01:52→23:12)
[2018-09-29] MEDS: ONDANSETRON INJ 2 MG/ML 2 ML VIAL IV PRN ×2 (01:53→20:19)
[2018-09-29] MEDS: PROMETHAZINE HCL 12.5 MG in SODIUM CHLORIDE 0.9% 50 ML IV PRN ×2 (05:27→17:04)
[2018-09-29 07:03] LABS: Hematocrit (blood only) 39.7 % (42-52); Hemoglobin 13.5 g/dL (14.0-18.0); Mean Corpuscular Volume 87.8 fL (80-100); Mean Platelet Volume 10.6 fL (7.4-10.4); Platelet Count 209 K/uL (130-400); RDW Coefficient of Variation 13.3 % (11.5-14.5); RDW Standard Deviation 42.6 fL (36.4-46.3); Red Blood Count 4.52 M/uL (4.7-6.1); White Blood Count 9.22 K/uL (4.8-10.8)
[2018-09-29] MEDS: AMLODIPINE BESYLATE 5 MG TAB PO SCH (07:23)
[2018-09-29 07:32] LABS: Albumin Level 3.8 gm/dl (3.4-5.0); BUN Creatinine Ratio 12.6 (10-20); Est GFR (African American) 99.4; Est GFR (Non-African American) 85.7
[2018-09-29 07:35] LABS: Albumin Globulin Ratio 1.2 (0.9-2); Bilirubin,Total 0.8 mg/dl (0.2-1); Globulin 3.1 gm/dl (2.5-4.0); Total Protein 6.9 gm/dl (6.4-8.2)
[2018-09-29] MEDS: NSS + 20MEQ KCL 20 MEQ/1,000 ML BAG IV SCH ×2 (08:16→17:31)
--- NOTE | 2018-09-29 09:17 | Surgery Progress Note ---
Date of Service September 29, 2018 Assessment & Plan (1) Abdominal pain: Etiology remains unclear White blood cell count remains normal Hernias remain reducible and minimally tender Continue observation with pain control and n.p.o. for now Present on Admission?: Yes Subjective Review of Systems Had vomiting last night No longer having nausea Abdominal pain is less than on admission Physical Exam Vital Signs (Past 24 Hours): Last Vital Signs Temp 36.6 C 09/29/18 07:06 Pulse 60 09/29/18 07:06 Resp 18 09/29/18 07:06 BP 169/84 H 09/29/18 07:06 Pulse Ox 96 09/29/18 07:06 Constitutional: no acute distress Gastrointestinal (Abdomen): Inspection/Auscultation: normal bowel sounds; abdomen not distended Percussion/Palpation: + abdomen tender (less than yesterday), abdomen soft and + hernia (Easily reduced and not tender) Results & Data Laboratory Results 09/29/18 09/29/18 09/28/18 Range/Units 06:41 06:41 22:30 WBC 9.22 (4.8-10.8) K/uL RBC 4.52 L (4.7-6.1) M/uL Hgb 13.5 L (14.0-18.0) g/dL Hct 39.7 L (42-52) % MCV 87.8 (80-100) fL MCH 29.9 (25-34) pg MCHC 34.0 (32-36) g/dL RDW Std Deviation 42.6 (36.4-46.3) fL RDW Coeff of Blanco 13.3 (11.5-14.5) % Plt Count 209 (130-400) K/uL MPV 10.6 H (7.4-10.4) fL Immature Gran % (Auto) % Neut % (Auto) % Lymph % (Auto) % [place] % (Auto) % Eos % (Auto) % Baso % (Auto) % Immature Gran # (Auto) (0.00-0.02) K/uL Neut # (Auto) (1.4-6.5) K/uL Lymph # (Auto) (1.2-3.4) K/uL [place] # (Auto) (0.11-0.59) K/uL Eos # (Auto) (0-0.5) K/uL Baso # (Auto) (0-0.2) K/uL ESR (0-14) mm/hr Sodium 140 (136-145) mmol/L Potassium 4.0 (3.5-5.1) mmol/L Chloride 111 H (98-107) mmol/L Carbon Dioxide 22 (21-32) mmol/L Anion Gap 7.0 (3-11) BUN 13 (7-18) mg/dl Creatinine 1.01 (0.6-1.4) mg/dl Est Cr Clr Drug Dosing 94.0 ml/min Est GFR ( Amer) 99.4 Est GFR (Non-Af Amer) 85.7 BUN/Creatinine Ratio 12.6 (10-20) Glucose 100 H (70-99) mg/dl Lactate (0.4-2.0) mmol/L Calcium 8.0 L (8.5-10.1) mg/dl Total Bilirubin 0.8 (0.2-1) mg/dl AST 52 H (15-37) U/L ALT 52 (12-78) U/L Alkaline Phosphatase 62 (45-117) U/L C-Reactive Protein (0-0.29) mg/dl Total Protein 6.9 (6.4-8.2) gm/dl Albumin 3.8 (3.4-5.0) gm/dl Globulin 3.1 (2.5-4.0) gm/dl Albumin/Globulin Ratio 1.2 (0.9-2) Lipase (73-393) U/L Urine Color Urine Appearance (Clear) Urine pH (4.5-7.5) Ur Specific [place] (1.000-1.030) Urine Protein (Negative) Urine Glucose (UA) (Negative) Urine Ketones (Negative) Urine Blood (Negative) Urine Nitrite (Negative) Urine Bilirubin (Negative) Urine Urobilinogen (Negative) Ur Leukocyte Esterase (Negative) Nasal Screen MRSA (PCR) Negative (Negative) 09/28/18 09/28/18 09/28/18 Range/Units 17:59 17:17 17:17 WBC (4.8-10.8) K/uL RBC (4.7-6.1) M/uL Hgb (14.0-18.0) g/dL Hct (42-52) % MCV (80-100) fL MCH (25-34) pg MCHC (32-36) g/dL RDW Std Deviation (36.4-46.3) fL RDW Coeff of [place]anco (11.5-14.5) % Plt Count (130-400) K/uL MPV (7.4-10.4) fL Immature Gran % (Auto) % Neut % (Auto) % Lymph % (Auto) % [place] % (Auto) % Eos % (Auto) % Baso % (Auto) % Immature Gran # (Auto) (0.00-0.02) K/uL Neut # (Auto) (1.4-6.5) K/uL Lymph # (Auto) (1.2-3.4) K/uL [place] # (Auto) (0.11-0.59) K/uL Eos # (Auto) (0-0.5) K/uL Baso # (Auto) (0-0.2) K/uL ESR (0-14) mm/hr Sodium 140 (136-145) mmol/L Potassium 3.8 (3.5-5.1) mmol/L Chloride 109 H (98-107) mmol/L Carbon Dioxide 23 (21-32) mmol/L Anion Gap 8.0 (3-11) BUN 12 (7-18) mg/dl Creatinine 1.07 (0.6-1.4) mg/dl Est Cr Clr Drug Dosing 90.1 ml/min Est GFR ( Amer) 92.7 Est GFR (Non-Af Amer) 80.0 BUN/Creatinine Ratio 10.9 (10-20) Glucose 91 (70-99) mg/dl Lactate 1.1 (0.4-2.0) mmol/L Calcium 8.9 (8.5-10.1) mg/dl Total Bilirubin 0.5 (0.2-1) mg/dl AST 55 H (15-37) U/L ALT 58 (12-78) U/L Alkaline Phosphatase 71 (45-117) U/L C-Reactive Protein < 0.29 (0-0.29) mg/dl Total Protein 7.4 (6.4-8.2) gm/dl Albumin 4.2 (3.4-5.0) gm/dl Globulin 3.2 (2.5-4.0) gm/dl Albumin/Globulin Ratio 1.3 (0.9-2) Lipase 148 (73-393) U/L Urine Color Yellow Urine Appearance Clear (Clear) Urine pH 7.5 (4.5-7.5) Ur Specific [place] 1.008 (1.000-1.030) Urine Protein Negative (Negative) Urine Glucose (UA) Negative (Negative) Urine Ketones Negative (Negative) Urine Blood Negative (Negative) Urine Nitrite Negative (Negative) Urine Bilirubin Negative (Negative) Urine Urobilinogen Negative (Negative) Ur Leukocyte Esterase Negative (Negative) Nasal Screen MRSA (PCR) (Negative) 09/28/18 09/28/18 Range/Units 17:17 17:17 WBC 8.04 (4.8-10.8) K/uL RBC 4.86 (4.7-6.1) M/uL Hgb 14.6 (14.0-18.0) g/dL Hct 41.9 L (42-52) % MCV 86.2 (80-100) fL MCH 30.0 (25-34) pg MCHC 34.8 (32-36) g/dL RDW Std Deviation 41.4 (36.4-46.3) fL RDW Coeff of [place]anco 13.1 (11.5-14.5) % Plt Count 235 (130-400) K/uL MPV 10.3 (7.4-10.4) fL Immature Gran % (Auto) 0.1 % Neut % (Auto) 60.2 % Lymph % (Auto) 29.9 % [place] % (Auto) 8.5 % Eos % (Auto) 0.9 % Baso % (Auto) 0.4 % Immature Gran # (Auto) 0.01 (0.00-0.02) K/uL Neut # (Auto) 4.85 (1.4-6.5) K/uL Lymph # (Auto) 2.40 (1.2-3.4) K/uL [place] # (Auto) 0.68 H (0.11-0.59) K/uL Eos # (Auto) 0.07 (0-0.5) K/uL Baso # (Auto) 0.03 (0-0.2) K/uL ESR 10 (0-14) mm/hr Sodium (136-145) mmol/L Potassium (3.5-5.1) mmol/L Chloride (98-107) mmol/L Carbon Dioxide (21-32) mmol/L Anion Gap (3-11) BUN (7-18) mg/dl Creatinine (0.6-1.4) mg/dl Est Cr Clr Drug Dosing ml/min Est GFR ( Amer) Est GFR (Non-Af Amer) BUN/Creatinine Ratio (10-20) Glucose (70-99) mg/dl Lactate (0.4-2.0) mmol/L Calcium (8.5-10.1) mg/dl Total Bilirubin (0.2-1) mg/dl AST (15-37) U/L ALT (12-78) U/L Alkaline Phosphatase (45-117) U/L C-Reactive Protein (0-0.29) mg/dl Total Protein (6.4-8.2) gm/dl Albumin (3.4-5.0) gm/dl Globulin (2.5-4.0) gm/dl Albumin/Globulin Ratio (0.9-2) Lipase (73-393) U/L Urine Color Urine Appearance (Clear) Urine pH (4.5-7.5) Ur Specific [place] (1.000-1.030) Urine Protein (Negative) Urine Glucose (UA) (Negative) Urine Ketones (Negative) Urine Blood (Negative) Urine Nitrite (Negative) Urine Bilirubin (Negative) Urine Urobilinogen (Negative) Ur Leukocyte Esterase (Negative) Nasal Screen MRSA (PCR) (Negative) (1) Abdominal pain Abdominal location: periumbilical Qualified Code(s): R10.33 - Periumbilical pain
[2018-09-29] MEDS: TAMSULOSIN HCL 0.4 MG CAP PO SCH (09:19)
[2018-09-30] MEDS: NSS + 20MEQ KCL 20 MEQ/1,000 ML BAG IV SCH ×2 (02:42→12:09)
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
[2018-09-30] MEDS: ONDANSETRON INJ 2 MG/ML 2 ML VIAL IV PRN ×2 (06:21→16:06)
[2018-09-30] MEDS: PROMETHAZINE HCL 12.5 MG in SODIUM CHLORIDE 0.9% 50 ML IV PRN (08:04)
[2018-09-30] MEDS: AMLODIPINE BESYLATE 5 MG TAB PO SCH (08:10)
[2018-09-30] MEDS: TAMSULOSIN HCL 0.4 MG CAP PO SCH (08:10)
[2018-09-30] MEDS: HYDROmorphone INJ 1 MG/ML SYRINGE IV PRN ×3 (10:03→19:56)
--- NOTE | 2018-09-30 13:24 | Progress Note ---
DATE: 09/30/2018 Mr. Casillas was seen again today. His anxiety was helped a bit by Ativan last night and he was able to sleep, however, the patient's anxiety level remains extremely high. He has had some dry heaving; however, I believe this is completely induced by his anxiety. His abdomen is soft. His CT scan shows no abnormalities except for what may be a new onset supraumbilical hernia or incisional hernia at port site. There is no erythema. He is very difficult to get a history from. Today, he states that he has no back pain, no flank pain, no pain in his left chest. He just has pain over the incisional hernia; however, this is completely different than his complaints last night. I believe that Mr. Casillas has a psychological component to his complaints. Again, I think treating his anxiety would probably be the best for him. I am going to liberalize diet. If he tolerates a house diet as I suspect he will, I will get him up ambulating. We will allow him to be discharged tomorrow.
--- NOTE | 2018-09-30 17:11 | Surgery Progress Note ---
Date of Service September 30, 2018 Assessment & Plan (1) Abdominal wall hernia: discussed options/risks ( bleeding/infection/infection of mesh requiring explant, dvt/,pe,mi,cva,injury to bowel etc....) questions answered will plan repair/open/possible mesh tomorrow morning pt agreeable Subjective pt continues to c/o of pain at supra-umbilical incisional hernia. he is very concerned over it. Physical Exam Vital Signs (Past 24 Hours): Last Vital Signs Temp 36.7 C 09/30/18 14:52 Pulse 58 L 09/30/18 14:52 Resp 16 09/30/18 14:52 BP 131/66 09/30/18 14:52 Pulse Ox 93 09/30/18 14:52 Physical Exam: alert. nad Heent: pearla. eomi Heart: RRR Lungs: CTA b/l abd: soft. +incisional hernia. reducible. +tender ext: no c/c/e
[2018-09-30] MEDS: LORazepam 1 MG TAB PO PRN (19:56)
[2018-10-01] MEDS: HYDROmorphone INJ 1 MG/ML SYRINGE IV PRN ×2 (00:44→05:56)
--- NOTE | 2018-10-01 06:47 | Anesthesiology Consultation ---
Date of Service October 01, 2018 Assessment & Plan Chart Review Chart Review: Acceptable Risk for Surgery and Patient NOT seen in Pre Admission Testing Consults Requested none ASA [id number] Proposed Anesthesia Anesthesia Type: General Risk / Benefits Reviewed With: PT / POA / Parent / Guardian, Accepts Plan and Informed Consent Obtained NPO Date Last Intake of Fluids: 09/30/18 Time Last Intake of Fluids: 23:00 Last Intake of Fluids Comment: sip of water with medications this am Date Last Intake of Solids: 09/30/18 Time Last Intake of Solids: 23:00 History Surgery Operation Date: 10/01/18 07:30 Proposed Procedures p Ventral Hernia Repair - Ricky Griggs, Height/Weight Height: 1.75 m Weight: 86 kg Allergies Allergy/AdvReac Type Severity Reaction Status Date / Time No Known Allergies Allergy Verified 09/28/18 17:30 Medications Home Medications Medication Instructions Recorded Confirmed Last Taken amlodipine 5 mg PO DAILY 09/28/18 09/28/18 Unknown aspirin 81 mg PO DAILY 09/28/18 09/28/18 Unknown atorvastatin 10 mg PO DAILY 09/28/18 09/28/18 Unknown diphenhydramine HCl 50 mg PO HS 09/28/18 09/28/18 Unknown hydroxyzine pamoate 100 mg PO HS 09/28/18 09/28/18 Unknown levalbuterol tartrate [Xopenex HFA] 2 inh INHALATION Q6H PRN 09/28/18 09/28/18 Unknown omeprazole 20 mg PO DAILY 09/28/18 09/28/18 Unknown tamsulosin 0.4 mg PO DAILY 09/28/18 09/28/18 Unknown Active Medications Generic Name Dose Route Start Last Admin Trade Name Freq PRN Reason Stop Dose Admin Amlodipine Besylate 5 mg 09/29/18 09:00 09/30/18 08:10 Norvasc PO 10/29/18 08:59 5 mg DAILY JYOTI Administration Hydromorphone HCl 1 mg 09/28/18 22:40 10/01/18 05:56 Dilaudid IV 10/12/18 22:39 1 mg Q2H PRN Administration Pain Promethazine HCl 12.5 mg/ 50.5 mls @ 202 mls/hr 09/29/18 04:55 09/30/18 08:28 Sodium Chloride IV 04/14/19 04:54 Infused Q6H PRN Infusion Nausea And Vomiting Lorazepam 1 mg 09/29/18 19:20 10/01/18 06:59 Ativan PO 10/29/18 19:19 1 mg Q12 PRN Administration Anxiety/Agitation Ondansetron HCl 4 mg 09/28/18 22:40 09/30/18 16:06 Zofran IV 10/28/18 22:39 4 mg Q6H PRN Administration nausea Tamsulosin HCl 0.4 mg 09/29/18 09:00 09/30/18 08:10 Flomax PO 10/29/18 08:59 0.4 mg QAM JYOTI Administration Past Medical History Medical History Anxiety Asthma No h/o hospitalization or intubation due to asthma. Last use of inhaler 3 days ago. No home o2 GERD (gastroesophageal reflux disease) Controlled with Prilosec Hepatitis C Hypercholesteremia Hypertension Urinary retention Past Surgical History Surgical History S/P bilateral inguinal hernia repair S/P hernia repair Diaphragmatic hernia Past Anesthesia History No Hx of Anesthesia Complications and No Family Hx of Anesthesia Complications History of PONV No Motion Sickness Screening History of Motion Sickness: No Social History Smoking Status: Current every day smoker tobacco type: cigarettes Smoking cigarettes per day: 1ppd x 35 years Do You Dip or Chew Tobacco: No Hx Alcohol Use: No Hx Substance Use: Yes substance use type: crack/cocaine and heroin Substance Use Type Other:: Last use 2010 Exercise / Class Metabolic Activity II 4-5 Yardwork/Stairs/Walk up hill Physical Exam Vital Signs Last Vital Signs Temp 36.7 C 10/01/18 07:02 Pulse 61 10/01/18 07:02 Resp 16 10/01/18 07:02 BP 133/77 10/01/18 07:02 Pulse Ox 92 10/01/18 07:02 ENMT Mouth: + dentures (Upper and lower partial); no TMJ abnormality and no TMJ clicking Thyromental Distance: > or= 3.5 Finger Breadths Mallampati Class: II Neck normal visual inspection; neck extension not limited Respiratory Auscultation: lungs clear to auscultation bilaterally Cardiovascular Rate/Rhythm: regular rate and regular rhythm Musculoskeletal Spine: normal cervical ROM and no pain with cervical ROM Psychiatric Orientation: alert and oriented x 3 Testing Laboratory Results 09/29/18 06:41 09/29/18 06:41 Urine Color Yellow 09/28/18 17:59 Urine Appearance Clear (Clear) 09/28/18 17:59 Urine pH 7.5 (4.5-7.5) 09/28/18 17:59 Ur Specific [place] 1.008 (1.000-1.030) 09/28/18 17:59 Urine Protein Negative (Negative) 09/28/18 17:59 Urine Glucose (UA) Negative (Negative) 09/28/18 17:59 Urine Ketones Negative (Negative) 09/28/18 17:59 Urine Nitrite Negative (Negative) 09/28/18 17:59 Ur Leukocyte Esterase Negative (Negative) 09/28/18 17:59 09/28/18 17:47 Blood Culture - Preliminary Blood No growth to date. 09/28/18 17:17 Blood Culture - Preliminary Blood No growth to date.
[2018-10-01] MEDS ORDERED: ePHEDrine sulfate 50 MG/ML AMP ONE (06:49)
[2018-10-01] MEDS ORDERED: DEXAMETHASONE SOD INJ 4 MG/ML VIAL ONE (06:49)
[2018-10-01] MEDS ORDERED: ONDANSETRON INJ 2 MG/ML 2 ML VIAL ONE (06:49)
[2018-10-01] MEDS ORDERED: LIDOCAINE HCL 2% 2 ML VIAL/AMP(20MG/ML) INFIL ONE (06:49)
[2018-10-01] MEDS ORDERED: PHENYLEPHRINE HCL 10 MG/ML VIAL ONE (06:49)
[2018-10-01] MEDS ORDERED: PROPOFOL IV EMULSION 10 MG/ML 20 ML VIAL IV ONE (06:49)
[2018-10-01] MEDS ORDERED: GLYCOPYRROLATE 0.2 MG/ML VIAL ONE (06:49)
[2018-10-01] MEDS ORDERED: NEOSTIGMINE METHYLSULFATE 5 MG/5 ML SYR ONE (06:49)
[2018-10-01] MEDS ORDERED: fentaNYL citrate 100 MCG/2 ML VIAL ONE ×2 (06:49→08:36)
[2018-10-01] MEDS ORDERED: MIDAZOLAM HCL 1 MG/ML 2ML VIAL ONE (06:49)
[2018-10-01] MEDS ORDERED: SUCCINYLCHOLINE CHLORIDE 20 MG/ML 10 ML VIAL ONE (06:49)
[2018-10-01] MEDS: LORazepam 1 MG TAB PO PRN (06:59)
[2018-10-01] MEDS ORDERED: ATROPINE SULFATE 0.1 MG/ML 10ML SYR IV PRN (07:02)
[2018-10-01] MEDS ORDERED: PROMETHAZINE HCL 12.5 MG in SODIUM CHLORIDE 0.9% 50 ML IV PRN (07:02)
[2018-10-01] MEDS ORDERED: HYDROmorphone INJ 1 MG/ML SYRINGE IV PRN (07:02)
[2018-10-01] MEDS ORDERED: ONDANSETRON INJ 2 MG/ML 2 ML VIAL IV PRN (07:02)
[2018-10-01] MEDS ORDERED: ePHEDrine sulfate 50 MG/ML AMP IV PRN (07:02)
[2018-10-01] MEDS ORDERED: PHENYLEPHRINE 100MCG/ML 5ML SYR IV PRN (07:02)
[2018-10-01] MEDS ORDERED: BUPIVACAINE/EPINEPHRINE 0.5% MPF 1:200,000 30 ML VIAL ONE (07:16)
--- NOTE | 2018-10-01 07:16 | History & Physical Bridge Note ---
Date of Service October 01, 2018 History & Physical Bridge Note I have examined the patient, reviewed the History & Physical and in the interval since the performance of the History & Physical I have noted the following changes of clinical significance: no changes noted
[2018-10-01] MEDS ORDERED: ROCURONIUM BROMIDE 10 MG/ML 5 ML VIAL ONE (07:45)
[2018-10-01] MEDS ORDERED: ePHEDrine sulfate 50 MG/ML SYR ONE (07:51)
[2018-10-01] MEDS ORDERED: CEFAZOLIN 250 MG/ML 1 GM VIAL ONE (07:58)
[2018-10-01] MEDS ORDERED: CEFAZOLIN 2000MG 2,000 MG/15 ML SYR IV ONE (07:59)
--- NOTE | 2018-10-01 08:03 | Operative Report ---
Post Operative Report Pre & Post Diagnosis Operation Date: 10/01/18 07:30 Pre-Op Diagnosis: Hernia Rupture Post-Op Diagnosis: Hernia; adhesions Procedure Operation Date: 10/01/18 07:30 Actual Procedures p Open Incisional Hernia Repair; lysis of adhesions - Ricky Griggs DO Surgeon Ricky Griggs DO Sleeping Car Conductor n/a Estimated Blood Loss 5 Findings Consistent with Post-Op Diagnosis Specimens none Description of Procedure After informed consent was obtained the patient was taken the operating room placed in supine position. After successful placement of the laryngeal mask airway the abdomen was shaved and sterilely prepped and draped in usual fashion. A supraumbilical incision was made through his old scar with a 10 blade scalpel. This was carried down through the soft tissue using cautery. I readily encountered a small hernia sac which I opened and excised. This revealed a small probably 1 cm fascial defect. There was some omental incarceration. This was adhesed to the undersurface of the fascia which I used traction countertraction blunt dissection and small amount of cautery to take these adhesions down. I was then able to dunk this back into the abdominal cavity. Because of the small size of the defect I opted to not use mesh. I used #1 Ethibond in interrupted [id number] fashion to primarily close the d efect. I then thoroughly irrigated the wound. I closed the deep space with 3-0 Vicryl and the skin with 4-0 Monocryl. Marcaine was injected around it for postoperative analgesia and skin glue used as a dressing. The patient was awakened extubated and transferred recovery in stable condition. I attest to the content of the Intraoperative Record and any orders documented therein. Any exceptions are noted below.
[2018-10-01] MEDS: TAMSULOSIN HCL 0.4 MG CAP PO SCH (08:35)
[2018-10-01] MEDS: AMLODIPINE BESYLATE 5 MG TAB PO SCH (08:35)
[2018-10-01] MEDS: fentaNYL citrate 100 MCG/2 ML VIAL IV PRN ×2 (08:36→08:41)
[2018-10-01] MEDS ORDERED: HYDROCODONE/ACETAMOPHEN 5/325MG TAB PO PRN (09:14)
--- NOTE | 2018-10-01 09:33 | Anesthesiology Progress Note ---
Date of Service October 01, 2018 Anesthesia Post Procedure Vital Signs Vital Signs: Temp Pulse Pulse Resp BP Pulse Ox 10/01/18 09:00 37.5 C 67 14 122/64 93 10/01/18 08:50 37.5 C 66 12 124/65 94 10/01/18 08:40 70 16 145/76 H 95 10/01/18 08:30 83 16 153/75 H 95 10/01/18 08:20 87 15 156/83 H 98 10/01/18 08:14 37 C 98 H 23 132/92 97 10/01/18 07:02 36.7 C 61 16 133/77 92 09/30/18 23:01 36.6 C 53 L 16 120/71 96 09/30/18 14:52 36.7 C 58 L 16 131/66 93 Pain Intensity Abdomen: Pain Intensity: 5 Notes Mental Status: alert / awake / arousable Patient Amnestic to Procedure: Yes Nausea / Vomiting: adequately controlled Pain: adequately controlled Airway Patency, RR, SpO2: stable & adequate BP & HR: stable & adequate Hydration State: stable & adequate Anesthetic Complications: no major complications apparent
[2018-10-01 10:15] VITALS: TEMP 98.1
[2018-10-01 13:03] VITALS: BP 117/71; PULSE 71; O2SAT 94
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
== END 2018-10-01 14:05 ==
LOC: 3E 16:32 → ED 16:32 → 3E 22:25